=== PATIENT | female | born 1945 | race Caucasian/White ===

== ENCOUNTER 2019-07-21 19:07 | Inpatient (IN) | payer BC, MEDICARE ==
[~2019-07-21] VITALS: Ht 157.5 cm; Wt 94.0 kg
[2019-07-21] MEDS ORDERED: methylPREDNISolone INJ 125 MG/2 ML VIAL (J2930) IV ONE (19:15)
--- NOTE | 2019-07-21 19:56 | REP ---
Clinical: Cough and dyspnea. Comparison: none Findings: Examination is limited by portable technique, underpenetration, and poor inspiratory effort. Elevation to the right hemidiaphragm is appreciated along with right basilar acute versus chronic fibroatelectatic changes. No obvious effusion. No pneumothorax. Skeletal structures intact. Cardiomegaly and dual lead pacemaker. Impression: Chronic-appearing changes. Cannot exclude acute versus chronic right basilar changes. Electronically Signed by Hoang Reyes MD 07/21/2019 07:47 P
--- NOTE | 2019-07-21 20:26 | REPVR ---
PROCEDURE INFORMATION: Exam: CT Head Without Contrast Exam date and time: 07/21/2019 8:00 PM Age: 73 years old Clinical indication: Altered mental status/memory loss; Confusion or disorientation; Additional info: AMS TECHNIQUE: Imaging protocol: Computed tomography of the head without contrast. Radiation optimization: All CT scans at this facility use at least one of these dose optimization techniques: automated exposure control; mA and/or kV adjustment per patient size (includes targeted exams where dose is matched to clinical indication); or iterative reconstruction. COMPARISON: No relevant prior studies available. FINDINGS: Brain: Focus of macrocystic encephalomalacia in the right temporoparietal lobe consistent with a prior chronic infarct. There is parenchymal volume loss. White matter changes are demonstrated in the subcortical, centrum semiovale and periventricular white matter consistent with age related small vessel white matter angiopathic gliosis. Ventricles: The degree of ventricular dilatation is normal for age and/or degree of atrophy present. Bones/joints: Unremarkable. No acute fracture. Sinuses: Visualized sinuses are unremarkable. No fluid levels. Mastoid air cells: Visualized mastoid air cells are well aerated. Soft tissues: Unremarkable. IMPRESSION: 1. Focus of macrocystic encephalomalacia in the right temporoparietal lobe consistent with a prior chronic infarct. 2. There is parenchymal volume loss. White matter changes are demonstrated in the subcortical, centrum semiovale and periventricular white matter consistent with age related small vessel white matter angiopathic gliosis. 3. The degree of ventricular dilatation is normal for age and/or degree of atrophy present. Electronically signed by: Jason Armendariz On 07/21/2019 20:25:50 PM
[2019-07-21] MEDS ORDERED: ACETAMINOPHEN TAB 650MG DOSE (2X325MG) PO ONE (20:30)
[2019-07-21] MEDS ORDERED: ONDANSETRON 4MG/2ML VIAL (J2405) IV ONE (20:45)
[2019-07-21] MEDS ORDERED: NS 1,000 ML IV ONE (20:45)
[2019-07-21] MEDS ORDERED: NS 2,270 ML in IV 1 EA IV ONE (20:45)
[2019-07-21 20:51] LABS: BASO # 0.1 10^3/uL (0.0-0.2); BASO % 0.2 % (0.0-1.0); HEMATOCRIT 49.3 % (36.0-47.0); HEMOGLOBIN 15.2 g/dl (12.0-15.5); LYMPH # 0.5 10^3/uL (1.5-5.0); MEAN CORPUSCULAR HEMOGLOBIN 28.4 pg (27.0-33.0); MEAN CORPUSCULAR HGB CONC 30.8 g/dl (32.0-36.5); MEAN CORPUSCULAR VOLUME 92.1 fl (80.0-96.0); MONO # 1.5 10^3/uL (0.0-0.8); MONO % 6.1 % (0.0-5.0); NEUTROPHILS % 90.8 % (36.0-66.0); PLATELET COUNT, AUTOMATED 205 10^3/uL (150-450); RED BLOOD COUNT 5.35 10^6/uL (4.00-5.40); WHITE BLOOD COUNT 24.3 10^3/uL (4.0-10.0)
[2019-07-21] MEDS: HumaLOG INSULIN (NovoLOG) PER UNIT SC SCH (21:00)
[2019-07-21 21:17] LABS: CALCIUM LEVEL 9.5 MG/DL (8.8-10.2); CK-MB VALUE MASS 1.4 NG/ML (<3.6); CREATININE FOR GFR 1.29 MG/DL (0.55-1.30); GLOMERULAR FILTRATION RATE 43.2 (>39); MB/CK RELATIVE INDEX 1.43 (< OR =4); POTASSIUM SERUM 3.6 MEQ/L (3.5-5.1); TROPONIN I 0.11 NG/ML (< 0.10)
[2019-07-21] MEDS ORDERED: PIPERACILLIN/TAZOBACTAM SOD 3.375 GM in D5W MINI-BAG PLUS 50 ML IV ONE (21:30)
[2019-07-21] MEDS ORDERED: ISOVUE-370 76% 100ML VIAL (Q9967) As Ordered ONE (21:31)
[2019-07-21 21:35] LABS: OSMOLALITY SERUM 293 MOSM/KG (280-301)
[2019-07-21 21:40] LABS: ETHYL ALCOHOL (ETHANOL) < 0.003 % (0.000-0.010)
[2019-07-21] MEDS ORDERED: VITA500C24 PO (22:04)
[2019-07-21] MEDS ORDERED: CARD40TA PO (22:04)
[2019-07-21] MEDS ORDERED: VENTAER INH (22:04)
[2019-07-21] MEDS ORDERED: IPRA0.00 IN (22:04)
[2019-07-21] MEDS ORDERED: FERR1TAB8 PO (22:04)
[2019-07-21] MEDS ORDERED: MECL-86 PO (22:04)
[2019-07-21] MEDS ORDERED: POTA1TAB14 PO (22:04)
[2019-07-21] MEDS ORDERED: NITR4TASL SL (22:04)
[2019-07-21] MEDS ORDERED: SYNT175T2 PO (22:04)
[2019-07-21] MEDS ORDERED: TOUJ1.2I SC (22:04)
[2019-07-21] MEDS ORDERED: PANT-23 PO (22:04)
[2019-07-21] MEDS ORDERED: DOCU100C16 PO (22:04)
[2019-07-21] MEDS ORDERED: SYMB80INH INH (22:04)
[2019-07-21] MEDS ORDERED: CRES40TA PO (22:04)
[2019-07-21] MEDS ORDERED: ELIQ5TAB PO (22:04)
[2019-07-21] MEDS ORDERED: FURO40TA2 PO (22:04)
[2019-07-21] MEDS ORDERED: CLAR10CA3 PO (22:04)
[2019-07-21] MEDS ORDERED: METF500T13 PO (22:09)
--- NOTE | 2019-07-21 22:41 | REPVR ---
PROCEDURE INFORMATION: Exam: CT Angiography Chest With Contrast Exam date and time: 07/21/2019 10:15 PM Age: 73 years old Clinical indication: Fever and shortness of breath; Additional info: SOB, fever unknown source TECHNIQUE: Imaging protocol: Computed tomographic angiography of the chest with intravenous contrast. 3D rendering: MIP and/or 3D reconstructed images were created by the technologist. Radiation optimization: All CT scans at this facility use at least one of these dose optimization techniques: automated exposure control; mA and/or kV adjustment per patient size (includes targeted exams where dose is matched to clinical indication); or iterative reconstruction. Contrast material: ISOVUE 370; Contrast volume: 100 ml; Contrast route: IV; COMPARISON: CR PORTABLE CHEST X-RAY 07/21/2019 7:30 PM FINDINGS: Pulmonary arteries: There are no pulmonary emboli. Excessive artifact limits evaluation of the smaller distal pulmonary arteries. Aorta: The aorta demonstrates mild atherosclerotic calcification. There is no aortic dissection or aneurysm. Lungs: Bilateral ground-glass opacities may be secondary to atelectasis although multifocal pneumonitis can present in a similar fashion. 7.4 mm noncalcified nodule right lower lobe. Right middle and lower lobe infiltrates with air bronchograms may be atelectatic although infection to be excluded clinically. Pleural space: Unremarkable. No pneumothorax. No pleural effusion. Heart: There is mild atherosclerotic calcification of the coronary arteries. Diaphragm: Large eventration right hemidiaphragm. Lymph nodes: Unremarkable. No enlarged lymph nodes. Bones/joints: The spine demonstrates mild degenerative changes. Soft tissues: Unremarkable. Other findings: Suboptimal inspiratory effort. IMPRESSION: 1. Bilateral ground-glass opacities may be secondary to atelectasis although multifocal pneumonitis can present in a similar fashion. 2. 7.4 mm noncalcified nodule right lower lobe. For patients at low risk (minimal or absent history of smoking and of other known risk factors), recommend CT at 6-12 months, then consider CT at 18-24 months. For patients at high risk (history of smoking or of other known risk factors), recommend CT at 6-12 months, then CT at 18-24 months. (paul Fay al., Fleischner Society, 2017). 3. Right middle and lower lobe infiltrates with air bronchograms may be atelectatic although infection to be excluded clinically. 4. There is no aortic dissection or aneurysm. 5. There are no pulmonary emboli. Excessive artifact limits evaluation of the smaller distal pulmonary arteries. Electronically signed by: Jason Armendariz On 07/21/2019 22:40:43 PM
--- NOTE | 2019-07-21 22:45 | REPVR ---
PROCEDURE INFORMATION: Exam: CT Abdomen And Pelvis With Contrast Exam date and time: 07/21/2019 10:15 PM Age: 73 years old Clinical indication: Fever; Additional info: SOB, fever unknown source TECHNIQUE: Imaging protocol: Computed tomography of the abdomen and pelvis with intravenous contrast. Radiation optimization: All CT scans at this facility use at least one of these dose optimization techniques: automated exposure control; mA and/or kV adjustment per patient size (includes targeted exams where dose is matched to clinical indication); or iterative reconstruction. Contrast material: ISOVUE 370; Contrast volume: 100 ml; Contrast route: IV; COMPARISON: No relevant prior studies available. FINDINGS: Liver: Examination of the liver demonstrates a lobular surface contour, and enlargement of the left and caudate lobes, findings consistent with cirrhosis. There is a diffuse decrease in hepatic parenchymal density, consistent with fatty infiltration. Gallbladder and bile ducts: There has been a cholecystectomy. Pancreas: There is diffuse pancreatic atrophy. Spleen: There is moderate splenomegaly with a maximum span of 15.5 centimeters. No focal abnormalities demonstrated. 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 Kidneys and ureters: Normal. No hydronephrosis. Stomach and bowel: Mild diverticulosis is present in the distal colon. No diverticulitis. Appendix: No evidence of appendicitis. Intraperitoneal space: Unremarkable. No free air. No significant fluid collection. Vasculature: The aorta demonstrates mild atherosclerotic calcification. Lymph nodes: Unremarkable. No enlarged lymph nodes. Bladder: Payne catheter within a collapsed urinary bladder. Reproductive: There has been a hysterectomy. Bones/joints: [id number] central spinal stenosis L3-L4 and L4-L5. Soft tissues: Unremarkable. IMPRESSION: 1. Examination of the liver demonstrates a lobular surface contour, and enlargement of the left and caudate lobes, findings consistent with cirrhosis. 2. There is moderate splenomegaly with a maximum span of 15.5 centimeters. No focal abnormalities demonstrated. 3. There has been a cholecystectomy. 4. There is a diffuse decrease in hepatic parenchymal density, consistent with fatty infiltration. 5. 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 6. There is diffuse pancreatic atrophy. 7. Mild diverticulosis is present in the distal colon. No diverticulitis. 8. There has been a hysterectomy. Electronically signed by: Jason Armendariz On 07/21/2019 22:44:54 PM
[2019-07-21 22:49] LABS: AMPHETAMINES LEVEL URINE NEGATIVE (NEGATIVE); BARBITURATES URINE NEGATIVE (NEGATIVE); BENZODIAZEPINES URINE NEGATIVE (NEGATIVE); CANNABINOIDS URINE NEGATIVE (NEGATIVE); COCAINE METABOLITE URINE NEGATIVE (NEGATIVE); METHADONE URINE NEGATIVE (NEGATIVE); OPIATES URINE NEGATIVE (NEGATIVE); PHENCYCLIDINE URINE NEGATIVE (NEGATIVE)
[2019-07-22 00:19] LABS: INR 1.67; PROTHROMBIN TIME 19.5 SECONDS (11.8-14.0)
[2019-07-22 00:20] LABS: PARTIAL THROMBOPLASTIN TIME 34.3 SECONDS (25.0-38.4)
[2019-07-22] MEDS ORDERED: IPRATROPIUM 0.5MG/ALBUTEROL 2.5MG INH SOL UD 3ML (DUONEB)(J7620) As Ordered ONE (01:11)
[2019-07-22] MEDS ORDERED: MECLIZINE 25 MG TABLET PO PRN (01:45)
[2019-07-22] MEDS ORDERED: GLUCAGON FOR INJ 1 MG VIAL (J1610) SC PRN (01:45)
[2019-07-22] MEDS ORDERED: NITROGLYCERIN 0.4 MG SUBL TABLET SL PRN (01:45)
[2019-07-22] MEDS ORDERED: GLUCOSE 4 GM CHEW TABLET PO PRN (01:45)
[2019-07-22] MEDS ORDERED: DOCUSATE SODIUM 100 MG CAP PO PRN (01:45)
[2019-07-22] MEDS ORDERED: DEXTROSE 50% 50 ML SYRINGE IV PRN (01:45)
[2019-07-22] MEDS: IPRATROPIUM 0.5MG/ALBUTEROL 2.5MG INH SOL UD 3ML (DUONEB)(J7620) NEB SCH ×4 (02:00→19:59)
[2019-07-22 03:18] LABS: MB/CK RELATIVE INDEX 1.35 (< OR =4); TROPONIN I 0.17 NG/ML (< 0.10)
[2019-07-22 04:00] VITALS: BP 124/65
[2019-07-22] MEDS ORDERED: LevoFLOXacin IV 750 MG in IV 1 EA IV SCH (05:00)
--- NOTE | 2019-07-22 06:26 | HPEPDOC ---
[facility] Medical History & Physical Date of Admission Jul 22, 2019 Date of Service: Jul 22, 2019 Attending Physician: TIFFANIE GAONA MD History and Physical CHIEF COMPLAINT: Altered Mental Status/SOB/Chills HISTORY OF PRESENT ILLNESS: Patient is a 73 year old female who presented to the [facility] with altered mental status and shortness of breath. The patients daughter was present in during examination and helped provide history. The patients daughter stated that earlier in the day the patient had called her son and told him that she was feeling cold and shaky. The patients son went to the patients house and found that she appeared confused and was pacing around. The patient son then took the patient to the [facility] ER. At presentation to the ER the patient was found to be altered and confused. The patient received IV fluid boluses and IV antibiotics. She was found to have an elevated WBC and lactic acid and was febrile. She received a chest x-ray, CTA of the chest, CT of the abdomen and pelvis, and head CT all of which were negative for any acute process. At the time of examination the patient was less altered. According to the daughter the patient was acting much closer to her baseline. The patient stated that she understands that she was confused. Currently the patient states that she does have some shortness of breath. She states that she has chills and hot flashes. She denies any abdominal pain. Hospitalist service was consulted and the patient was admitted for further evaluation and management PAST MEDICAL HISTORY: 1. Congestive Heart failure 2. Diabetes Mellitus Type 2 3. COPD 4. Chronic L leg wound 5. History of stroke 6. Skin Cancer on Left pérez PAST SURGICAL HISTORY: 1. Hysterectomy 2. CAD with stent placement x3 3. Pacemaker placement 4. Cataract surgery SOCIAL HISTORY: Patient lives home alone. Her daughter and son sometimes stop by to assist her. She denies alcohol use. She denies IV or illict drug use. She is a former smoker and quit 6 years ago. She started smoking about a ppd at the age of 17. FAMILY HISTORY: Patients mom is alive at 94 with CHF. Her father past away and had "heart problems" ALLERGIES: Please see below. REVIEW OF SYSTEMS: CONSTITUTIONAL: Admits to chills. Denies unintentional weightloss. Denies night sweats HEENT: Denies dysphagia. Denies sore throat. Denies lymphadenopathy CARDIOVASCULAR: Denies chest pain, denies palpitations or feelings of the heart racing RESPIRATORY: Admits to shortness of breath. Denies cough or sputum production GASTROINTESTINAL: Denies abdominal pain. Denies nausea, vomiting, diarrhea or constipation/ GENITOURINARY: Denies dysuria. Denies increased frequency or urgency SKIN: Admits to chronic ulcer on her left pérez which has recently started to heal NEUROLOGICAL: Denies changes in speech or gait. Admits to confusion PSYCHIATRIC: Denies depression or anxiety ENDOCRINE: Denies heat intolerance or cold intolerance. HEMATOLOGIC/LYMPHATIC: Denies easy bruising or bleeding. Denies history of DVT or PE HOME MEDICATIONS: Please see below. PHYSICAL EXAMINATION: VITAL SIGNS: Temperature 102.7, pulse 129 , respiratory rate 28, blood pressure 133/59, pulse oximetry 94% on 15L Nonrebreather GENERAL APPEARANCE: Awake, alert, and oriented. Does not appear in acute distress. Lying comfortably in bed HEENT: Atrauamtic, normocephalic. Eyes are nonicteric. Trachea is midline. No palpable cervical, axillary, or supraclavicular lymphadenopathy CARDIOVASCULAR: Normal S1, S2. tachycardic rate with a regular rhythm. No clicks rubs or murmurs LUNGS: Diminished breath sounds throughout with bilateral crackles in the bases. Symmetric chest expansion. No wheezing. No rhonchi ABDOMEN: Soft, nondistended. Nontender. No rebound tenderness of guarding. Normoactive bowel sounds throughout EXTREMITIES: Trace edema. Full and equal pulses in bilateral lower extremities NEUROLOGICAL: No focal neurological deficits PSYCHIATRIC: Mood and affect appear appropriate LABORATORY DATA: See below. IMAGING: Clinical: Cough and dyspnea. Comparison: none Findings: Examination is limited by portable technique, underpenetration, and poor inspiratory effort. Elevation to the right hemidiaphragm is appreciated along with right basilar acute versus chronic fibroatelectatic changes. No obvious effusion. No pneumothorax. Skeletal structures intact. Cardiomegaly and dual lead pacemaker. Impression: Chronic-appearing changes. Cannot exclude acute versus chronic right basilar changes. Electronically Signed by Hoang Reyes MD 07/21/2019 07:47 P PROCEDURE INFORMATION: Exam: CT Head Without Contrast Exam date and time: 07/21/2019 8:00 PM Age: 73 years old Clinical indication: Altered mental status/memory loss; Confusion or disorientation; Additional info: AMS TECHNIQUE: Imaging protocol: Computed tomography of the head without contrast. Radiation optimization: All CT scans at this facility use at least one of these dose optimization techniques: automated exposure control; mA and/or kV adjustment per patient size (includes targeted exams where dose is matched to clinical indication); or iterative reconstruction. COMPARISON: No relevant prior studies available. FINDINGS: Brain: Focus of macrocystic encephalomalacia in the right temporoparietal lobe consistent with a prior chronic infarct. There is parenchymal volume loss. White matter changes are demonstrated in the subcortical, centrum semiovale and periventricular white matter consistent with age related small vessel white matter angiopathic gliosis. Ventricles: The degree of ventricular dilatation is normal for age and/or degree of atrophy present. Bones/joints: Unremarkable. No acute fracture. Sinuses: Visualized sinuses are unremarkable. No fluid levels. Mastoid air cells: Visualized mastoid air cells are well aerated. Soft tissues: Unremarkable. IMPRESSION: 1. Focus of macrocystic encephalomalacia in the right temporoparietal lobe consistent with a prior chronic infarct. 2. There is parenchymal volume loss. White matter changes are demonstrated in the subcortical, centrum semiovale and periventricular white matter consistent with age related small vessel white matter angiopathic gliosis. 3. The degree of ventricular dilatation is normal for age and/or degree of atrophy present. Electronically signed by: Jason Armendariz On 07/21/2019 20:25:50 PM PROCEDURE INFORMATION: Exam: CT Angiography Chest With Contrast Exam date and time: 07/21/2019 10:15 PM Age: 73 years old Clinical indication: Fever and shortness of breath; Additional info: SOB, fever unknown source TECHNIQUE: Imaging protocol: Computed tomographic angiography of the chest with intravenous contrast. 3D rendering: MIP and/or 3D reconstructed images were created by the technologist. Radiation optimization: All CT scans at this facility use at least one of these dose optimization techniques: automated exposure control; mA and/or kV adjustment per patient size (includes targeted exams where dose is matched to clinical indication); or iterative reconstruction. Contrast material: ISOVUE 370; Contrast volume: 100 ml; Contrast route: IV; COMPARISON: CR PORTABLE CHEST X-RAY 07/21/2019 7:30 PM FINDINGS: Pulmonary arteries: There are no pulmonary emboli. Excessive artifact limits evaluation of the smaller distal pulmonary arteries. Aorta: The aorta demonstrates mild atherosclerotic calcification. There is no aortic dissection or aneurysm. Lungs: Bilateral ground-glass opacities may be secondary to atelectasis although multifocal pneumonitis can present in a similar fashion. 7.4 mm noncalcified nodule right lower lobe. Right middle and lower lobe infiltrates with air bronchograms may be atelectatic although infection to be excluded clinically. Pleural space: Unremarkable. No pneumothorax. No pleural effusion. Heart: There is mild atherosclerotic calcification of the coronary arteries. Diaphragm: Large eventration right hemidiaphragm. Lymph nodes: Unremarkable. No enlarged lymph nodes. Bones/joints: The spine demonstrates mild degenerative changes. Soft tissues: Unremarkable. Other findings: Suboptimal inspiratory effort. IMPRESSION: 1. Bilateral ground-glass opacities may be secondary to atelectasis although multifocal pneumonitis can present in a similar fashion. 2. 7.4 mm noncalcified nodule right lower lobe. For patients at low risk (minimal or absent history of smoking and of other known risk factors), recommend CT at 6-12 months, then consider CT at 18-24 months. For patients at high risk (history of smoking or of other known risk factors), recommend CT at 6-12 months, then CT at 18-24 months. (Sumeet et al., Fleischner Society, 2017). 3. Right middle and lower lobe infiltrates with air bronchograms may be atelectatic although infection to be excluded clinically. 4. There is no aortic dissection or aneurysm. 5. There are no pulmonary emboli. Excessive artifact limits evaluation of the smaller distal pulmonary arteries. Electronically signed by: Jason Armendariz On 07/21/2019 22:40:43 PM MICROBIOLOGY: Please see below. PROCEDURE INFORMATION: Exam: CT Abdomen And Pelvis With Contrast Exam date and time: 07/21/2019 10:15 PM Age: 73 years old Clinical indication: Fever; Additional info: SOB, fever unknown source TECHNIQUE: Imaging protocol: Computed tomography of the abdomen and pelvis with intravenous contrast. Radiation optimization: All CT scans at this facility use at least one of these dose optimization techniques: automated exposure control; mA and/or kV adjustment per patient size (includes targeted exams where dose is matched to clinical indication); or iterative reconstruction. Contrast material: ISOVUE 370; Contrast volume: 100 ml; Contrast route: IV; COMPARISON: No relevant prior studies available. FINDINGS: Liver: Examination of the liver demonstrates a lobular surface contour, and enlargement of the left and caudate lobes, findings consistent with cirrhosis. There is a diffuse decrease in hepatic parenchymal density, consistent with fatty infiltration. Gallbladder and bile ducts: There has been a cholecystectomy. Pancreas: There is diffuse pancreatic atrophy. Spleen: There is moderate splenomegaly with a maximum span of 15.5 centimeters. No focal abnormalities demonstrated. 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 Kidneys and ureters: Normal. No hydronephrosis. Stomach and bowel: Mild diverticulosis is present in the distal colon. No diverticulitis. Appendix: No evidence of appendicitis. Intraperitoneal space: Unremarkable. No free air. No significant fluid collection. Vasculature: The aorta demonstrates mild atherosclerotic calcification. Lymph nodes: Unremarkable. No enlarged lymph nodes. Bladder: Payne catheter within a collapsed urinary bladder. Reproductive: There has been a hysterectomy. Bones/joints: Rmpv-no-bzzenttl central spinal stenosis L3-L4 and L4-L5. Soft tissues: Unremarkable. IMPRESSION: 1. Examination of the liver demonstrates a lobular surface contour, and enlargement of the left and caudate lobes, findings consistent with cirrhosis. 2. There is moderate splenomegaly with a maximum span of 15.5 centimeters. No focal abnormalities demonstrated. 3. There has been a cholecystectomy. 4. There is a diffuse decrease in hepatic parenchymal density, consistent with fatty infiltration. 5. 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 6. There is diffuse pancreatic atrophy. 7. Mild diverticulosis is present in the distal colon. No diverticulitis. 8. There has been a hysterectomy. Electronically signed by: Jason Armendariz On 07/21/2019 22:44:54 PM ASSESSMENT: Patient is a 73 year old female who presented to the [facility] ER for AMS and shortness of breath and found to meet sepsis criteria . PLAN: 1. Sepsis 2/2 pneumonia/respiratory infection -Patient meets criteria for sepsis. She is febrile, with an elevated WBC, tachycardic and has an elevated lactic acidosis. -Patient has received IV fluid boluses. Patient received Zosyn in the ED. -Will continue patient on Levaquin IV -Procalcitonin is pending -telemetry 2. Lactic Acidosis -Patient will be continued on IVF. Likely secondary to the patients respiratory status. However, will continue IVF and trend 3. Altered Mental Status -Possibly secondary to sepsis/infection. The patients daughter states that she appears to be at her baseline currently. Will continue to watch 3. Atrial fibrillation with sick sinus syndrome -Patient has a pace maker. She is currently tachycardic. This could be secondary to Atrial fibrillation vs sepsis. Continue her home medications -Continue Eliquis 4. COPD -Patient may have a COPD exacerbation -IV Levaquin -Dounebs 5. Diabetes Mellitus Type 2 -Levemir 60 units SC daily -Sliding scale coverage 6. GERD -Continue home Protonix 7. DVT prophylaxis -Chronically anticoagulated with eliquis Vital Signs Vital Signs Date Time Temp Pulse Resp B/P (MAP) Pulse Ox O2 Delivery O2 Flow Rate FiO2 07/22/19 03:33 98.9 105 91 07/22/19 03:31 19 Nasal Cannula 5.0 07/22/19 03:30 103/57 (72) Laboratory Data Labs 24H Laboratory Tests 2 07/21/19 19:31: POC pH (Misc Panel) 7.450, POC Base Excess (Misc Panel) 3.0, POC Saturated Percent O2 (Misc) 98, POC pO2 (Misc Panel) 106.0H, POC pCO2 (Misc Panel) 38.5, POC HCO3 (Misc Panel) 26.7H, POC Total CO2 (Misc Panel) 28.0H 07/21/19 20:09: Bedside Glucose (Misc Panel) 176H 07/21/19 20:26: Immature Granulocyte % (Auto) 0.9, Neutrophils (%) (Auto) 90.8H, Lymphocytes (%) (Auto) 2.0L, Monocytes (%) (Auto) 6.1H, Eosinophils (%) (Auto) 0.0, Basophils (% ) (Auto) 0.2, Neutrophils # (Auto) 22.0H, Lymphocytes # (Auto) 0.5L, Monocytes # (Auto) 1.5H, Eosinophils # (Auto) 0.0, Basophils # (Auto) 0.1, Nucleated Red Blood Cells % (auto) 0.0, Prothrombin Time 19.5H, Prothromb Time International Ratio 1.67, Activated Partial Thromboplast Time 34.3, Anion Gap 11, Glomerular Filtration Rate 43.2, Lactic Acid Level 4.0*H, Calcium Level 9.5, Total Creatine Kinase 98, Creatine Kinase MB 1.4, Creatine Kinase MB Relative Index 1.43, Troponin I 0.11H, BX-Qbm-N-Type Natriuretic Peptide 568H 07/21/19 21:05: Osmolality 293, Ammonia 26, Ethyl Alcohol Level < 0.003, B-Hydroxybutyrate 2.30 07/21/19 21:53: Urine Color YELLOW, Urine Appearance CLEAR, Urine pH 7.0, Urine Specific [place] 1.012, Urine Protein 2+H, Urine Glucose (UA) NEGATIVE, Urine Ketones NEGATIVE, Urine Blood NEGATIVE, Urine Nitrite NEGATIVE, Urine Bilirubin NEGATIVE, Urine Urobilinogen 0.2, Urine Leukocyte Esterase NEGATIVE, Urine WBC (Auto) 2, Urine RBC (Auto) 4H, Urine Hyaline Casts (Auto) 0, Urine Bacteria (Auto) NEGATIVE, Urine Squamous Epithelial Cells 0, Urine Sperm (Auto) , Urine Opiates Screen NEGATIVE, Urine Methadone Screen NEGATIVE, Urine Barbiturates Screen NEGATIVE, Urine Phencyclidine Screen NEGATIVE, Urine Amphetamines Screen NEGATIVE, Urine Benzodiazepines Screen NEGATIVE, Urine Cocaine Metabolite Screen NEGATIVE, Urine Cannabinoids Screen NEGATIVE 07/22/19 02:41: Total Creatine Kinase 148, Creatine Kinase MB 2.0, Creatine Kinase MB Relative Index 1.35, Troponin I 0.17#H 07/22/19 02:42: Lactic Acid Followup at 4 Hours 3.4*H CBC/BMP Laboratory Tests 07/21/19 20:26 Microbiology Microbiology 07/21/19 Blood Culture, Received Pending 07/21/19 Respiratory Virus Panel (PCR) ([facility]) - Final, Complete 07/21/19 Blood Culture, Received Pending Home Medications Scheduled Apixaban (Eliquis) 5 Mg Tablet, 5 MG PO BID Ascorbic Acid (Vitamin C) 500 Mg Capsule, 500 MG PO DAILY Budesonide/Formoterol (Symbicort 80-4.5 Mcg Inhaler) 6.9 Gm Hfa.aer.ad, 2 PUFF INH BID Diltiazem HCl (Cardizem) 30 Mg Tablet, 30 MG PO TID Ferrous Sulfate (Ferrous Sulfate) 325 Mg Tablet, 325 MG PO TID Furosemide (Furosemide) 40 Mg Tablet, 40 MG PO DAILY Insulin Glargine,Hum.rec.anlog (Yvonne Solosttom) 300 Unit/1 Ml Insuln.pen, 190 UNIT SC DAILY Ipratropium/Albuterol Sulfate (Iprat-Albut 0.5-3(2.5) mg/3 ml) 3 Ml Ampul.neb, 1 INHALATION IN TID Levothyroxine Sodium (Synthroid) 175 Mcg Tablet, 175 MCG PO DAILY Loratadine (Claritin) 10 Mg Capsule, 10 MG PO DAILY Metformin HCl (Metformin HCl) 500 Mg Tablet, 500 MG PO BID Nitroglycerin (Nitrostat) 0.4 Mg Tab.subl, 0.4 MG SL NITRO for chest pain 1st sign of attack; may repeat every 5 mins; if pain persists after 3 in 15 min, medical attention is recommended Pantoprazole Sodium (Pantoprazole Sodium) 40 Mg Tablet.dr, 40 MG PO DAILY Potassium Chloride (Potassium Chloride) 20 Meq Tablet.er, 20 MEQ PO BID Rosuvastatin Calcium (Crestor) 40 Mg Tablet, 40 MG PO DAILY Scheduled PRN Albuterol Sulfate (Ventolin Hfa) 18 Gm Hfa.aer.ad, 2 PUFF INH Q4-6H PRN for wheezing Docusate Sodium (Docusate Sodium) 100 Mg Capsule, 100 MG PO DAILY PRN for CONSTIPATION Meclizine HCl (Meclizine HCl) 25 Mg Tablet, 25 MG PO TID PRN for DIZZINESS Allergies Coded Allergies: Sulfa (Sulfonamide Antibiotics) (Verified Allergy, Unknown, ERIK, 07/21/19) acetaminophen (Verified Allergy, Unknown, nausea, 07/21/19) amiloride (Verified Allergy, Unknown, nausea, 07/21/19) amoxicillin (Verified Allergy, Unknown, reddened skin, 07/21/19) canagliflozin (Verified Allergy, Unknown, DKA, 07/21/19) cephalexin (Verified Allergy, Unknown, nausea, 07/21/19) clindamycin (Verified Allergy, Unknown, gi upset, 07/21/19) codeine (Verified Allergy, Unknown, n/v, 07/21/19) doxycycline (Verified Allergy, Unknown, n/v, 07/21/19) erythromycin base (Verified Allergy, Unknown, gi upset, 07/21/19) gemfibrozil (Verified Allergy, Unknown, rash, 07/21/19) hydrocodone (Verified Allergy, Unknown, nausea, 07/21/19) indapamide (Verified Allergy, Unknown, rash, 07/21/19) lorazepam (Verified Allergy, Unknown, hallucinations, 07/21/19) morphine (Verified Allergy, Unknown, n/v, 07/21/19) pioglitazone (Verified Allergy, Unknown, edema; wieght gain, 07/21/19) sitagliptin (Verified Allergy, Unknown, nausea, 07/21/19) tetracycline (Verified Allergy, Unknown, gi, 07/21/19) tiotropium (Verified Allergy, Unknown, rash, 07/21/19) A-FIB/CHADSVASC A-FIB History Current/History of A-Fib/PAF?: Yes Current PO Anticoag Therapy: Yes JENNIFER WORLEY DO Jul 22, 2019 06:26
[2019-07-22] MEDS: NS 1,000 ML IV SCH ×2 (06:51→13:21)
[2019-07-22] MEDS: SYMBICORT 80/4.5MCG INHALER 6GM INH SCH ×2 (07:32→19:59)
[2019-07-22 07:44] VITALS: BP 134/74
[2019-07-22] MEDS: HumaLOG INSULIN (NovoLOG) PER UNIT SC SCH ×4 (07:52→20:46)
[2019-07-22 07:54] LABS: HEMOGLOBIN 13.8 g/dl (12.0-15.5); MEAN CORPUSCULAR HEMOGLOBIN 29.3 pg (27.0-33.0); MEAN CORPUSCULAR HGB CONC 32.1 g/dl (32.0-36.5); MEAN CORPUSCULAR VOLUME 91.3 fl (80.0-96.0); PLATELET COUNT, AUTOMATED 163 10^3/uL (150-450); RED BLOOD COUNT 4.71 10^6/uL (4.00-5.40); WHITE BLOOD COUNT 24.9 10^3/uL (4.0-10.0)
[2019-07-22 08:16] LABS: CALCIUM LEVEL 8.5 MG/DL (8.8-10.2); CREATININE FOR GFR 1.37 MG/DL (0.55-1.30); GLOMERULAR FILTRATION RATE 40.3 (>39); POTASSIUM SERUM 3.9 MEQ/L (3.5-5.1)
[2019-07-22] MEDS ORDERED: FUROSEMIDE 40 MG TAB PO SCH (09:00)
[2019-07-22] MEDS: LEVEMIR (INSULIN DETEMIR) 1 UNITS/0.01ML SC SCH (09:41)
[2019-07-22] MEDS: PANTOPRAZOLE 40MG TAB (PROTONIX) PO SCH (09:42)
[2019-07-22] MEDS: FERROUS SULFATE 325MG TAB PO SCH ×3 (09:42→20:47)
[2019-07-22] MEDS: APIXABAN 5 MG TAB (ELIQUIS) PO SCH ×2 (09:42→20:48)
[2019-07-22] MEDS: ROSUVASTATIN 10 MG TAB (CRESTOR) PO SCH (09:42)
[2019-07-22] MEDS: ASCORBIC ACID 500 MG TAB PO SCH (09:42)
[2019-07-22] MEDS: LORATADINE 10 MG TAB PO SCH (09:42)
[2019-07-22 12:00] VITALS: BP 127/60
[2019-07-22] MEDS: PIPERACILLIN/TAZOBACTAM SOD 3.375 GM in D5W MINI-BAG PLUS 50 ML IV SCH ×2 (15:26→20:47)
[2019-07-22 16:00] VITALS: BP 132/61
[2019-07-22 20:00] VITALS: BP 147/73
[2019-07-23] VITALS (23 sets, daily range): BP systolic 132–160; BP diastolic 61–89; O2SAT 84–94
[2019-07-23] MEDS: IPRATROPIUM 0.5MG/ALBUTEROL 2.5MG INH SOL UD 3ML (DUONEB)(J7620) NEB SCH ×4 (00:01→20:00)
--- NOTE | 2019-07-23 01:11 | IPNPDOC ---
Subjective Date Seen The patient was seen on 07/22/19. Subjective Chief Complaint/HPI She reports that she is feeling much better, admits that she was confused yesterday but is A&O x3 now. Denies coughing. She desires to fill out paperwork for a MOLST form. Constitutional: Denies: Chills, Fever Pulmonary: Reports: Dyspnea; Denies: Cough Cardiovascular: Denies: Chest Pain Gastrointestinal: Denies: Nausea, Vomiting, Abdominal Pain, Diarrhea, Constipation Psych: Reports: Mood Normal, Anxiety Objective Physical Examination General Exam: Positive: Alert, Cooperative; Negative: Severe Distress Eye Exam: Negative: PERRLA Neck Exam: Negative: Supple Chest Exam: Positive: Clear to auscultation Heart Exam: Positive: Tachycardic Telemetry: Positive: No significant arrhythmia Abdomen Exam: Positive: Normal bowel sounds, Soft; Negative: Tenderness Skin Exam: Positive: Nl turgor and temperature Neuro Exam: Positive: Normal Tone, Sensation Intact Assessment /Plan Problems (1) COPD (chronic obstructive pulmonary disease) Problem Text: Nebs ordered. (2) Diabetes mellitus Problem Text: slidng scale insulin (3) Pneumonia Status: Acute Problem Text: Changed to Zosyn from Levaquin; she does not admit to cough, and I'm not certain that she has pneumonia. (4) HTN (hypertension) Status: Chronic (5) Sepsis Status: Acute Problem Text: Blood cultures temporarily positive for Gram positive cocci in chains. Plan/VTE VTE Prophylaxis Ordered?: Yes VS, I&O, 24H, Fishbone Vital Signs/I&O Vital Signs Date Time Temp Pulse Resp B/P (MAP) Pulse Ox O2 Delivery O2 Flow Rate FiO2 07/23/19 00:00 97.3 91 20 138/61 (86) 92 Nasal Cannula 3.0 I&O- Last 24 Hours up to 6 AM 07/23/19 05:59 Intake Total 1835 ml Output Total 750 ml Balance 1085 ml Laboratory Data 24H LABS Laboratory Tests 2 07/22/19 02:41: Total Creatine Kinase 148, Creatine Kinase MB 2.0, Creatine Kinase MB Relative Index 1.35, Troponin I 0.17#H 07/22/19 02:42: Lactic Acid Followup at 4 Hours 3.4*H 07/22/19 06:57: Bedside Glucose (Misc Panel) 223H 07/22/19 07:35: Nucleated Red Blood Cells % (auto) 0.0, Anion Gap 12, Glomerular Filtration Rate 40.3, Calcium Level 8.5L 07/22/19 11:45: Bedside Glucose (Misc Panel) 241H 07/22/19 16:32: Bedside Glucose (Misc Panel) 239H 07/22/19 20:13: Bedside Glucose (Misc Panel) 274H CBC/BMP Laboratory Tests 07/22/19 07:35 Microbiology Microbiology 07/21/19 Blood Culture - Preliminary, Resulted 07/21/19 Respiratory Virus Panel (PCR) ([facility]) - Final, Complete 07/21/19 Blood Culture - Preliminary, Resulted MICKEY HOUSE DO Jul 23, 2019 01:11
[2019-07-23] MEDS: IPRATROPIUM 0.5MG/ALBUTEROL 2.5MG INH SOL UD 3ML (DUONEB)(J7620) NEB PRN ×3 (02:07→23:51)
[2019-07-23] MEDS: PIPERACILLIN/TAZOBACTAM SOD 3.375 GM in D5W MINI-BAG PLUS 50 ML IV SCH ×4 (02:20→20:58)
[2019-07-23 04:20] LABS: APPEARANCE, URINE CLEAR (CLEAR); BACTERIA, URINE AUTO 2+ (NEGATIVE); BILIRUBIN, URINE AUTO NEGATIVE (NEGATIVE); BLOOD, URINE BLOOD 3+ (NEGATIVE); COLOR, URINE STRAW (YELLOW); GLUCOSE, URINE (UA) AUTO NEGATIVE (NEGATIVE); KETONE, URINE AUTO NEGATIVE (NEGATIVE); LEUKOCYTE ESTERASE, URINE AUTO NEGATIVE (NEGATIVE); NITRITE, URINE AUTO NEGATIVE (NEGATIVE); PROTEIN, URINE AUTO NEGATIVE (NEGATIVE); RBC, URINE AUTO 21 /HPF (0-3); SPECIFIC GRAVITY URINE AUTO 1.006 (1.002-1.035); SQUAMOUS EPITHELIAL CELL UR AU 0 /HPF (0-6); UROBILINOGEN, URINE AUTO 0.2 mg/dL (0.0-2.0); WBC, URINE AUTO 2 /HPF (0-3)
[2019-07-23 05:18] LABS: HEMATOCRIT 42.6 % (36.0-47.0); HEMOGLOBIN 12.9 g/dl (12.0-15.5); MEAN CORPUSCULAR HEMOGLOBIN 28.4 pg (27.0-33.0); MEAN CORPUSCULAR HGB CONC 30.3 g/dl (32.0-36.5); MEAN CORPUSCULAR VOLUME 93.8 fl (80.0-96.0); PLATELET COUNT, AUTOMATED 164 10^3/uL (150-450); RED BLOOD COUNT 4.54 10^6/uL (4.00-5.40); WHITE BLOOD COUNT 16.9 10^3/uL (4.0-10.0)
[2019-07-23 05:47] LABS: CALCIUM LEVEL 8.6 MG/DL (8.8-10.2); CREATININE FOR GFR 1.11 MG/DL (0.55-1.30); GLOMERULAR FILTRATION RATE 51.4 (>39); POTASSIUM SERUM 3.9 MEQ/L (3.5-5.1)
[2019-07-23] MEDS: SYMBICORT 80/4.5MCG INHALER 6GM INH SCH ×2 (07:21→21:41)
[2019-07-23] MEDS: HumaLOG INSULIN (NovoLOG) PER UNIT SC SCH ×4 (07:51→21:00)
--- NOTE | 2019-07-23 08:11 | REP ---
Clinical: Shortness of breath. Comparison: 07/21/2019. Findings: Stable cardiomegaly and elevation to the right hemidiaphragm again noted. Pulmonary vascular congestion and interstitial edema along with possible right pleural effusion cannot be excluded. No pneumothorax. Skeletal structures intact. Impression: 1. Cardiomegaly with pulmonary vascular congestion/interstitial edema suspected. Electronically Signed by Hoang Reyes MD 07/23/2019 08:02 A
[2019-07-23] MEDS: FERROUS SULFATE 325MG TAB PO SCH ×3 (08:36→20:58)
[2019-07-23] MEDS: ASCORBIC ACID 500 MG TAB PO SCH (08:36)
[2019-07-23] MEDS: LEVEMIR (INSULIN DETEMIR) 1 UNITS/0.01ML SC SCH (08:36)
[2019-07-23] MEDS: ROSUVASTATIN 10 MG TAB (CRESTOR) PO SCH (08:36)
[2019-07-23] MEDS: LORATADINE 10 MG TAB PO SCH (08:37)
[2019-07-23] MEDS: APIXABAN 5 MG TAB (ELIQUIS) PO SCH ×2 (08:37→20:57)
[2019-07-23] MEDS: PANTOPRAZOLE 40MG TAB (PROTONIX) PO SCH (08:37)
[2019-07-23] MEDS ORDERED: FUROSEMIDE 40 MG TAB PO ONE (09:00)
[2019-07-23] MEDS: LEVOTHYROXINE 25MCG TABLET (0.025MG) PO SCH (09:11)
[2019-07-23] MEDS: LEVOTHYROXINE 150MCG TABLET (0.15MG) PO SCH (09:12)
[2019-07-23] MEDS ORDERED: FUROSEMIDE 40 MG/4 ML VIAL (J1940) IV ONE (11:00)
--- NOTE | 2019-07-23 15:21 | ECGEPIP ---
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
--- NOTE | 2019-07-23 15:25 | ECGEPIP ---
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
[2019-07-23 17:53] LABS: CREATININE FOR GFR 1.22 MG/DL (0.55-1.30); GLOMERULAR FILTRATION RATE 46.1 (>39); POTASSIUM SERUM 3.4 MEQ/L (3.5-5.1)
[2019-07-23] MEDS: FUROSEMIDE 40 MG TAB PO SCH ×2 (18:07→20:58)
[2019-07-23] MEDS ORDERED: POTASSIUM CHLORIDE 10 MEQ SR TABLET PO ONE (19:00)
[2019-07-24] VITALS (24 sets, daily range): BP systolic 139–180; BP diastolic 72–92; O2SAT 88–95
--- NOTE | 2019-07-24 00:01 | IPNPDOC ---
Subjective Date Seen The patient was seen on 07/23/19. Subjective Chief Complaint/HPI In the early hours of the morning she developed increased oxygen demand and dyspnea; CXR demonstrated bilateral infiltrates. It turns out that her Lasix dose had recently been changed, and she had been taking #3 tabs of 40 mg Lasix daily. Patient was given IV Lasix and began diuresing. MOLST form had been discussed and filled out with patient yesterday, but patient waited to sign it until tomorrow afternoon, when a family member was able to bring her glasses and she could personally read the form. I signed the form this morning. She also has developed significant tender, erythematous skin along her RLE. Blood cultures are growing GBS. Constitutional: Denies: Chills, Fever Skin: Reports: Rash (erythema and calor RLE), Breakdown (LLE) Pulmonary: Reports: Dyspnea; Denies: Cough Cardiovascular: Denies: Chest Pain Gastrointestinal: Reports: Constipation; Denies: Nausea, Vomiting, Abdominal Pain, Diarrhea Psych: Reports: Mood Normal Objective Physical Examination General Exam: Positive: Alert, Cooperative; Negative: Severe Distress Eye Exam: Negative: PERRLA Neck Exam: Negative: Supple Chest Exam: Positive: Clear to auscultation Heart Exam: Positive: Tachycardic Telemetry: Positive: No significant arrhythmia Abdomen Exam: Positive: Normal bowel sounds, Soft; Negative: Tenderness Skin Exam: Positive: Nl turgor and temperature, Rash (erythematous area that is warm and tender to the touch along RLE) Neuro Exam: Positive: Normal Tone, Sensation Intact Psych Exam: Positive: Mental status NL Assessment /Plan Problems (1) COPD (chronic obstructive pulmonary disease) Problem Text: Nebs ordered. (2) Diabetes mellitus Problem Text: slidng scale insulin (3) Pneumonia Status: Acute Problem Text: 07/23 -- I think volume overload is a more likely explanation of her dyspnea. Changed to Zosyn from Levaquin; she does not admit to cough, and I'm not certain that she has pneumonia. (4) HTN (hypertension) Status: Chronic (5) Sepsis Status: Acute Problem Text: Blood cultures temporarily positive for Gram positive cocci in chains. (6) Volume overload Status: Acute Problem Text: 07/23 -- I think this is the source of her dyspnea, and it was worsened with the IV fluids that she was receiving. She is diuresing well. (7) Cellulitis Problem Text: Zosyn ordered. Likely cause of her GBS status. (8) Group B streptococcal infection Status: Acute Problem Text: I think this is secondary to her RLE cellulitis. Zosyn ordered, Plan/VTE VTE Prophylaxis Ordered?: Yes VS, I&O, 24H, Fishbone Vital Signs/I&O Vital Signs Date Time Temp Pulse Resp B/P (MAP) Pulse Ox O2 Delivery O2 Flow Rate FiO2 07/23/19 20:58 94 142/67 07/23/19 20:00 97.1 20 91 Venturi Mask 4.0 07/23/19 20:00 35 I&O- Last 24 Hours up to 6 AM 07/23/19 06:00 Intake Total 1835 ml Output Total 1195 ml Balance 640 ml Laboratory Data 24H LABS Laboratory Tests 2 07/23/19 04:01: Urine Color STRAW, Urine Appearance CLEAR, Urine pH 6.0, Urine Specific Dennard 1.006, Urine Protein NEGATIVE, Urine Glucose (Auto)(UA) NEGATIVE, Urine Ketones (Auto) NEGATIVE, Urine Blood 3+H, Urine Nitrite NEGATIVE, Urine Bilirubin NEGATIVE, Urine Urobilinogen 0.2, Urine Leukocyte Esterase (Auto) NEGATIVE, Urine WBC (Auto) 2, Urine RBC (Auto) 21H, Urine Hyaline Casts (Auto) 0, Urine Bacteria (Auto) 2+H, Urine Squamous Epithelial Cells 0, Urine Sperm (Auto) 07/23/19 04:56: Nucleated Red Blood Cells % (auto) 0.0, Anion Gap 8, Glomerular Filtration Rate 51.4, Calcium Level 8.6L 07/23/19 12:03: Bedside Glucose (Misc Panel) 169H 07/23/19 16:34: Bedside Glucose (Misc Panel) 127H 07/23/19 17:14: Anion Gap 8, Glomerular Filtration Rate 46.1, Calcium Level 9.0 07/23/19 21:02: Bedside Glucose (Misc Panel) 145H CBC/BMP Laboratory Tests 07/23/19 04:56 07/23/19 17:14 Microbiology Microbiology 07/21/19 Blood Culture - Preliminary, Resulted Strep Agalactiae Group B 07/21/19 Respiratory Virus Panel (PCR) ([facility]) - Final, Complete 07/21/19 Blood Culture - Preliminary, Resulted Strep Agalactiae Group B MICKEY HOUSE DO Jul 24, 2019 00:01
[2019-07-24] MEDS: IPRATROPIUM 0.5MG/ALBUTEROL 2.5MG INH SOL UD 3ML (DUONEB)(J7620) NEB SCH ×4 (02:31→22:03)
[2019-07-24] MEDS: PIPERACILLIN/TAZOBACTAM SOD 3.375 GM in D5W MINI-BAG PLUS 50 ML IV SCH ×4 (03:44→20:41)
[2019-07-24] MEDS: LEVOTHYROXINE 150MCG TABLET (0.15MG) PO SCH (05:30)
[2019-07-24] MEDS: LEVOTHYROXINE 25MCG TABLET (0.025MG) PO SCH (05:30)
[2019-07-24 06:00] LABS: HEMOGLOBIN 13.9 g/dl (12.0-15.5); MEAN CORPUSCULAR HGB CONC 31.6 g/dl (32.0-36.5); MEAN CORPUSCULAR VOLUME 91.7 fl (80.0-96.0); PLATELET COUNT, AUTOMATED 184 10^3/uL (150-450); WHITE BLOOD COUNT 11.3 10^3/uL (4.0-10.0)
[2019-07-24 06:20] LABS: CALCIUM LEVEL 9.2 MG/DL (8.8-10.2); CREATININE FOR GFR 1.17 MG/DL (0.55-1.30); GLOMERULAR FILTRATION RATE 48.4 (>39); POTASSIUM SERUM 4.2 MEQ/L (3.5-5.1)
[2019-07-24] MEDS: HumaLOG INSULIN (NovoLOG) PER UNIT SC SCH ×4 (07:30→20:44)
[2019-07-24] MEDS: SYMBICORT 80/4.5MCG INHALER 6GM INH SCH ×2 (08:17→22:03)
[2019-07-24] MEDS: HYDROCORTISONE 1% CREAM 30 GM TOP SCH ×2 (09:00→20:40)
--- NOTE | 2019-07-24 09:46 | IPNPDOC ---
Subjective Date Seen The patient was seen on 07/24/19. Subjective Chief Complaint/HPI Pt this morning states that she is feeling better. She states that her breathing is better and she is thirsty, she wants to know if she can have more to drink. General: Reports: Fatigue Constitutional: Denies: Chills, Fever Pulmonary: Denies: Dyspnea, Cough Cardiovascular: Denies: Chest Pain, Palpitations Gastrointestinal: Denies: Nausea, Vomiting, Diarrhea Neurological: Denies: Weakness, Numbness Psych: Reports: Mood Normal Objective Physical Examination General Exam: Positive: Alert, Cooperative; Negative: Severe Distress Eye Exam: Negative: PERRLA ENT Exam: Positive: Mucous membr. moist/pink Neck Exam: Negative: Supple Chest Exam: Positive: Rales (Bibasilar fine rales), Diminished Heart Exam: Positive: Tachycardic Telemetry: Positive: No significant arrhythmia Abdomen Exam: Positive: Normal bowel sounds, Soft; Negative: Tenderness Skin Exam: Positive: Nl turgor and temperature, Rash (erythematous area that is warm and tender to the touch along RLE) Neuro Exam: Positive: Normal Tone, Sensation Intact Psych Exam: Positive: Mental status NL Assessment /Plan Problems (1) Acute on chronic diastolic (congestive) heart failure Status: Acute Response to Treatment: Stable Discussed With: Patient Problem Specific Plan: Monitor Clinically, Repeat Labs Problem Text: 07/24 Lasix IV yesterday, now on Lasix 40 mg po TID, YONI diet, overnight put out 3.5 L, weight down 6 kg. Resp status improved with diuresis. (2) Sepsis Status: Acute Problem Text: BC+ GB Strep x 2, on Zosyn. Likely assoc with LE cellulitis. Afebrile, WBC cont to trend down. (3) Cellulitis Problem Text: Zosyn ordered. See above. (4) Pneumonia Status: Acute Problem Text: 07/24 On Zosyn D3 07/23 -- I think volume overload is a more likely explanation of her dyspnea. Changed to Zosyn from Levaquin; she does not admit to cough, and I'm not certain that she has pneumonia. (5) Diabetes mellitus Status: Chronic Response to Treatment: Stable Problem Text: slidng scale insulin (6) COPD (chronic obstructive pulmonary disease) Status: Chronic Response to Treatment: Stable Problem Text: Nebs ordered. (7) HTN (hypertension) Status: Chronic Problem Specific Plan: Monitor Clinically (8) Volume overload Status: Acute Problem Text: 07/23 -- I think this is the source of her dyspnea, and it was worsened with the IV fluids that she was receiving. She is diuresing well. (9) Group B streptococcal infection Status: Acute Problem Text: I think this is secondary to her RLE cellulitis. Zosyn ordered, Plan/VTE VTE Prophylaxis Ordered?: Yes VS, I&O, 24H, Fishbone Vital Signs/I&O Vital Signs Date Time Temp Pulse Resp B/P (MAP) Pulse Ox O2 Delivery O2 Flow Rate FiO2 07/24/19 08:00 97.7 80 18 151/72 (98) 93 Venturi Mask 4.0 07/24/19 07:47 35 I&O- Last 24 Hours up to 6 AM 07/24/19 06:00 Intake Total 720 ml Output Total 3650 ml Balance -2930 ml Laboratory Data 24H LABS Laboratory Tests 2 07/23/19 12:03: Bedside Glucose (Misc Panel) 169H 07/23/19 16:34: Bedside Glucose (Misc Panel) 127H 07/23/19 17:14: Anion Gap 8, Glomerular Filtration Rate 46.1, Calcium Level 9.0 07/23/19 21:02: Bedside Glucose (Misc Panel) 145H 07/24/19 05:27: Nucleated Red Blood Cells % (auto) 0.0, Anion Gap 7L, Glomerular Filtration Rate 48.4, Calcium Level 9.2 CBC/BMP Laboratory Tests 07/23/19 17:14 07/24/19 05:27 Microbiology Microbiology 07/21/19 Blood Culture - Final, Complete Strep Agalactiae Group B 07/21/19 Respiratory Virus Panel (PCR) ([facility]) - Final, Complete 07/21/19 Blood Culture - Final, Complete Strep Agalactiae Group B CINDY ELY PA-C Jul 24, 2019 09:46
[2019-07-24] MEDS: FUROSEMIDE 40 MG TAB PO SCH ×3 (10:43→20:40)
[2019-07-24] MEDS: FERROUS SULFATE 325MG TAB PO SCH ×3 (10:43→20:41)
[2019-07-24] MEDS: ASCORBIC ACID 500 MG TAB PO SCH (10:43)
[2019-07-24] MEDS: PANTOPRAZOLE 40MG TAB (PROTONIX) PO SCH (10:43)
[2019-07-24] MEDS: APIXABAN 5 MG TAB (ELIQUIS) PO SCH ×2 (10:44→20:40)
[2019-07-24] MEDS: ROSUVASTATIN 10 MG TAB (CRESTOR) PO SCH (10:44)
[2019-07-24] MEDS: LORATADINE 10 MG TAB PO SCH (10:44)
[2019-07-24] MEDS: LEVEMIR (INSULIN DETEMIR) 1 UNITS/0.01ML SC SCH (11:29)
[2019-07-24] MEDS: NITROGLYCERIN 2% OINT 1 GM *U/D* PKT TOP SCH (22:07)
[2019-07-25] VITALS (24 sets, daily range): BP systolic 130–168; BP diastolic 70–88; O2SAT 83–95
[2019-07-25] MEDS: IPRATROPIUM 0.5MG/ALBUTEROL 2.5MG INH SOL UD 3ML (DUONEB)(J7620) NEB SCH ×4 (02:13→20:00)
[2019-07-25] MEDS: PIPERACILLIN/TAZOBACTAM SOD 3.375 GM in D5W MINI-BAG PLUS 50 ML IV SCH ×2 (03:53→09:11)
[2019-07-25] MEDS: NITROGLYCERIN 2% OINT 1 GM *U/D* PKT TOP SCH (03:56)
[2019-07-25] MEDS: LEVOTHYROXINE 150MCG TABLET (0.15MG) PO SCH (05:43)
[2019-07-25] MEDS: LEVOTHYROXINE 25MCG TABLET (0.025MG) PO SCH (05:43)
[2019-07-25 06:10] LABS: HEMATOCRIT 46.4 % (36.0-47.0); HEMOGLOBIN 14.1 g/dl (12.0-15.5); MEAN CORPUSCULAR HGB CONC 30.4 g/dl (32.0-36.5); MEAN CORPUSCULAR VOLUME 92.2 fl (80.0-96.0); PLATELET COUNT, AUTOMATED 191 10^3/uL (150-450); RED BLOOD COUNT 5.03 10^6/uL (4.00-5.40)
[2019-07-25 06:40] LABS: CALCIUM LEVEL 8.8 MG/DL (8.8-10.2); CREATININE FOR GFR 1.14 MG/DL (0.55-1.30); GLOMERULAR FILTRATION RATE 49.9 (>39)
[2019-07-25] MEDS: HumaLOG INSULIN (NovoLOG) PER UNIT SC SCH ×4 (07:10→20:03)
[2019-07-25] MEDS: SYMBICORT 80/4.5MCG INHALER 6GM INH SCH ×2 (07:56→21:06)
[2019-07-25] MEDS: POTASSIUM CHLORIDE 10 MEQ SR TABLET PO SCH ×2 (09:09→12:34)
[2019-07-25] MEDS: PANTOPRAZOLE 40MG TAB (PROTONIX) PO SCH (09:10)
[2019-07-25] MEDS: ASCORBIC ACID 500 MG TAB PO SCH (09:10)
[2019-07-25] MEDS: LORATADINE 10 MG TAB PO SCH (09:10)
[2019-07-25] MEDS: FUROSEMIDE 40 MG TAB PO SCH ×3 (09:10→20:02)
[2019-07-25] MEDS: FERROUS SULFATE 325MG TAB PO SCH ×3 (09:10→20:02)
[2019-07-25] MEDS: APIXABAN 5 MG TAB (ELIQUIS) PO SCH ×2 (09:10→20:01)
[2019-07-25] MEDS: ROSUVASTATIN 10 MG TAB (CRESTOR) PO SCH (09:10)
[2019-07-25] MEDS: LEVEMIR (INSULIN DETEMIR) 1 UNITS/0.01ML SC SCH (09:11)
[2019-07-25] MEDS: HYDROCORTISONE 1% CREAM 30 GM TOP SCH ×2 (09:12→20:02)
--- NOTE | 2019-07-25 09:52 | IPNPDOC ---
Subjective Date Seen The patient was seen on 07/25/19. Subjective Chief Complaint/HPI No complaints Constitutional: Denies: Chills, Fever Pulmonary: Denies: Dyspnea, Cough Cardiovascular: Denies: Chest Pain Gastrointestinal: Denies: Nausea, Vomiting, Abdominal Pain, Diarrhea, Constipation Objective Physical Examination General Exam: Positive: Alert, Cooperative; Negative: Severe Distress Eye Exam: Negative: PERRLA ENT Exam: Positive: Mucous membr. moist/pink Neck Exam: Negative: Supple Chest Exam: Positive: Rales (Bibasilar fine rales), Diminished Heart Exam: Positive: Tachycardic Telemetry: Positive: No significant arrhythmia Abdomen Exam: Positive: Normal bowel sounds, Soft; Negative: Tenderness Skin Exam: Positive: Nl turgor and temperature, Rash (erythematous area that is warm and tender to the touch along RLE) Neuro Exam: Positive: Normal Tone, Sensation Intact Psych Exam: Positive: Mental status NL Assessment /Plan Problems (1) Sepsis Status: Acute Problem Text: 07/25 - BC+ GB Strep x 2, on Zosyn D4 Likely Etiology LE cellulitis, but leg does not really look better with abx suggesting possible other etiology - Get Echo Afebrile, WBC normalized (2) Acute on chronic diastolic (congestive) heart failure Status: Acute Response to Treatment: Stable Discussed With: Patient Problem Specific Plan: Monitor Clinically, Repeat Labs Problem Text: 07/25 - Continues to diurese on po Lasix 40 TID. Still requiring Venti mask - will try to wean D/C sandhu Encourage OOB replace K+ 07/24 Lasix IV yesterday, now on Lasix 40 mg po TID, YONI diet, overnight put out 3.5 L, weight down 6 kg. Resp status improved with diuresis. (3) Cirrhosis Status: Chronic Problem Text: Likely secondary to NAFLD - No ascites on CT: 1. Examination of the liver demonstrates a lobular surface contour, and enlargement of the left and caudate lobes, findings consistent with cirrhosis. 2. There is moderate splenomegaly with a maximum span of 15.5 centimeters. No focal abnormalities demonstrated. 3. There has been a cholecystectomy. 4. There is a diffuse decrease in hepatic parenchymal density, consistent with fatty infiltration. 5. 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 6. There is diffuse pancreatic atrophy. 7. Mild diverticulosis is present in the distal colon. No diverticulitis. 8. There has been a hysterectomy. Get Hepatitis panel etc and F/U as outpatient (4) Cellulitis Problem Text: Zosyn ordered. See above. (5) Pneumonia Status: Acute Problem Text: 07/25 On Zosyn D4 07/23 -- I think volume overload is a more likely explanation of her dyspnea. Changed to Zosyn from Levaquin; she does not admit to cough, and I'm not certain that she has pneumonia. (6) Diabetes mellitus Status: Chronic Response to Treatment: Stable Problem Text: slidng scale insulin and Levemir - AM blood sugars are low last 2 days - I will cut back on Levemir Slightly (7) COPD (chronic obstructive pulmonary disease) Status: Chronic Response to Treatment: Stable Problem Text: Nebs ordered. (8) HTN (hypertension) Status: Chronic Problem Specific Plan: Monitor Clinically Problem Text: BP stable - patient refused NTG paste - I will d/c this (9) Volume overload Status: Acute Problem Text: 07/23 -- I think this is the source of her dyspnea, and it was worsened with the IV fluids that she was receiving. She is diuresing well. (10) Group B streptococcal infection Status: Acute Problem Text: I think this is secondary to her RLE cellulitis. Zosyn ordered, (11) Atrial fibrillation Status: Chronic Problem Text: Rate controlled on Diltiazem Cont Eliquis (12) Lung nodule Onset Date: ~ 06/2019 Status: Chronic Problem Text: Will need outpatient f/u CT chest: 1. Bilateral ground-glass opacities may be secondary to atelectasis although multifocal pneumonitis can present in a similar fashion. 2. 7.4 mm noncalcified nodule right lower lobe. For patients at low risk (minimal or absent history of smoking and of other known risk factors), recommend CT at 6-12 months, then consider CT at 18-24 months. For patients at high risk (history of smoking or of other known risk factors), recommend CT at 6-12 months, then CT at 18-24 months. (Sumeet et al., Fleischner Society, 2017). 3. Right middle and lower lobe infiltrates with air bronchograms may be atelectatic although infection to be excluded clinically. 4. There is no aortic dissection or aneurysm. 5. There are no pulmonary emboli. Excessive artifact limits evaluation of the smaller distal pulmonary arteries. Plan/VTE VTE Prophylaxis Ordered?: Yes Disposition Get PT - move to floor VS, I&O, 24H, Fishbone Vital Signs/I&O Vital Signs Date Time Temp Pulse Resp B/P (MAP) Pulse Ox O2 Delivery O2 Flow Rate FiO2 07/25/19 09:10 101 144/70 07/25/19 08:00 98.4 18 95 Venturi Mask 4.0 07/25/19 06:00 35 I&O- Last 24 Hours up to 6 AM 07/25/19 06:00 Intake Total 920 ml Output Total 2550 ml Balance -1630 ml Laboratory Data 24H LABS Laboratory Tests 2 07/24/19 09:30: Bedside Glucose (Misc Panel) 143H 07/24/19 12:06: Bedside Glucose (Misc Panel) 238H 07/24/19 17:14: Bedside Glucose (Misc Panel) 183H 07/24/19 20:44: Bedside Glucose (Misc Panel) 137H 07/25/19 05:43: Nucleated Red Blood Cells % (auto) 0.0, Anion Gap 9, Glomerular Filtration Rate 49.9, Calcium Level 8.8, Magnesium Level 2.0 CBC/BMP Laboratory Tests 07/25/19 05:43 Microbiology Microbiology 07/21/19 Blood Culture - Final, Complete Strep Agalactiae Group B 07/21/19 Respiratory Virus Panel (PCR) ([facility]) - Final, Complete 07/21/19 Blood Culture - Final, Complete Strep Agalactiae Group B MELVIN DURHAM PA-C Jul 25, 2019 09:52 Anuj Prince MD Jul 25, 2019 11:07
[2019-07-25 10:53] LABS: FERRITIN 143 NG/ML (8-252); IRON (FE) 60 UG/DL (50-170); PERCENT SATURATION 21.7 % (13.2-45.0); TOTAL IRON BINDING CAPACITY 276 UG/DL (250-450)
[2019-07-25] MEDS: NYSTATIN 100,000 UNITS/GM TOPICAL PWD 15 GM TOP SCH ×2 (11:14→20:02)
[2019-07-25] MEDS ORDERED: MIRALAX *UNIT DOSE* 17GM PACKET PO PRN (11:15)
[2019-07-25] MEDS ORDERED: FLEET ENEMA PR PRN (11:15)
[2019-07-25] MEDS: cefTRIAXone SOD 1 GM in D5W MINI-BAG PLUS 50 ML IV SCH (15:30)
[2019-07-25] MEDS: DOCUSATE SODIUM 100 MG CAP PO SCH (20:01)
[2019-07-26] VITALS (23 sets, daily range): BP systolic 143–156; BP diastolic 70–97; O2SAT 85–95
[2019-07-26] MEDS: IPRATROPIUM 0.5MG/ALBUTEROL 2.5MG INH SOL UD 3ML (DUONEB)(J7620) NEB SCH ×4 (02:13→20:00)
[2019-07-26] MEDS: LEVOTHYROXINE 25MCG TABLET (0.025MG) PO SCH (05:32)
[2019-07-26] MEDS: LEVOTHYROXINE 150MCG TABLET (0.15MG) PO SCH (05:32)
[2019-07-26 06:29] LABS: HEMATOCRIT 46.2 % (36.0-47.0); HEMOGLOBIN 14.2 g/dl (12.0-15.5); MEAN CORPUSCULAR HGB CONC 30.7 g/dl (32.0-36.5); MEAN CORPUSCULAR VOLUME 90.9 fl (80.0-96.0); PLATELET COUNT, AUTOMATED 218 10^3/uL (150-450); RED BLOOD COUNT 5.08 10^6/uL (4.00-5.40); WHITE BLOOD COUNT 12.5 10^3/uL (4.0-10.0)
[2019-07-26 06:59] LABS: CALCIUM LEVEL 9.7 MG/DL (8.8-10.2); CREATININE FOR GFR 1.07 MG/DL (0.55-1.30); GLOMERULAR FILTRATION RATE 53.7 (>39); POTASSIUM SERUM 3.1 MEQ/L (3.5-5.1)
[2019-07-26] MEDS: SYMBICORT 80/4.5MCG INHALER 6GM INH SCH ×2 (07:55→20:13)
[2019-07-26] MEDS: ASCORBIC ACID 500 MG TAB PO SCH (08:40)
[2019-07-26] MEDS: FERROUS SULFATE 325MG TAB PO SCH ×3 (08:40→21:06)
[2019-07-26] MEDS: APIXABAN 5 MG TAB (ELIQUIS) PO SCH ×2 (08:40→21:06)
[2019-07-26] MEDS: ROSUVASTATIN 10 MG TAB (CRESTOR) PO SCH (08:41)
[2019-07-26] MEDS: LORATADINE 10 MG TAB PO SCH (08:41)
[2019-07-26] MEDS: FUROSEMIDE 40 MG TAB PO SCH ×3 (08:41→21:06)
[2019-07-26] MEDS: HumaLOG INSULIN (NovoLOG) PER UNIT SC SCH ×4 (08:42→20:59)
[2019-07-26] MEDS: HYDROCORTISONE 1% CREAM 30 GM TOP SCH ×2 (08:43→21:06)
[2019-07-26] MEDS: NYSTATIN 100,000 UNITS/GM TOPICAL PWD 15 GM TOP SCH ×2 (08:44→21:06)
[2019-07-26] MEDS: PANTOPRAZOLE 40MG TAB (PROTONIX) PO SCH (08:54)
[2019-07-26] MEDS ORDERED: POTASSIUM CHLORIDE 10 MEQ SR TABLET PO ONE (09:00)
[2019-07-26] MEDS ORDERED: LEVEMIR (INSULIN DETEMIR) 1 UNITS/0.01ML SC SCH (09:00)
--- NOTE | 2019-07-26 10:09 | IPNPDOC ---
Subjective Date Seen The patient was seen on 07/26/19. Subjective Chief Complaint/HPI Patient reports nausea since early this am. No vomiting. No abd pain. No significant BM in a few days. C/O Right thigh pain Constitutional: Denies: Chills, Fever Pulmonary: Denies: Dyspnea, Cough Cardiovascular: Denies: Chest Pain, Palpitations Gastrointestinal: Reports: Nausea, Constipation; Denies: Vomiting, Abdominal Pain, Diarrhea Objective Physical Examination General Exam: Positive: Alert, Cooperative, No Acute Distress Neck Exam: Negative: Supple Chest Exam: Positive: Rales (Bibasilar fine rales), Diminished Heart Exam: Positive: Tachycardic Telemetry: Positive: No significant arrhythmia, Tachycardia Abdomen Exam: Positive: Normal bowel sounds, Soft; Negative: Tenderness Extremity Exam: Positive: Edema Skin Exam: Positive: Rash (Venous stasis dermatitis on both shins with dry flaky skin and erythema with tenderness, but no ulceration) Psych Exam: Positive: Mental status NL Assessment /Plan Problems (1) Sepsis Status: Acute Problem Text: 07/26 - BC+ GB Strep x 2, s/p Zosyn x 5 days - Abx switched to Rocephin 07/25, however WBC has gone back up slightly today Etiology initially thought to be from Cellulitis, but no change in Right LE erythema or tenderness since starting abx depsite normalization of WBXC and becoming afebrile. - Rahs looks more like venous stassi dermatitis Echo done 07/25 - no report yet, but pe tech the Echo quality was poor - We will consult Dr. Rey to consider MALIA Get repeat BC and ESR/CRP (2) Acute on chronic diastolic (congestive) heart failure Status: Acute Response to Treatment: Stable Discussed With: Patient Problem Specific Plan: Monitor Clinically, Repeat Labs Problem Text: 07/25 - Continues to diurese on po Lasix 40 TID. I & O remain negative, but still clinically decompensated Venti-mask weaned to NC (3) Cirrhosis Status: Chronic Problem Text: Likely secondary to NAFLD - No ascites on CT: 1. Examination of the liver demonstrates a lobular surface contour, and enlargement of the left and caudate lobes, findings consistent with cirrhosis. 2. There is moderate splenomegaly with a maximum span of 15.5 centimeters. No focal abnormalities demonstrated. 3. There has been a cholecystectomy. 4. There is a diffuse decrease in hepatic parenchymal density, consistent with fatty infiltration. 5. 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 6. There is diffuse pancreatic atrophy. 7. Mild diverticulosis is present in the distal colon. No diverticulitis. 8. There has been a hysterectomy. Hepatitis panel etc pending and F/U as outpatient (4) Cellulitis Problem Text: Zosyn ordered. See above. (5) Pneumonia Status: Acute Problem Text: 07/25 On Zosyn D4 07/23 -- I think volume overload is a more likely explanation of her dyspnea. Changed to Zosyn from Levaquin; she does not admit to cough, and I'm not certain that she has pneumonia. (6) Diabetes mellitus Status: Chronic Response to Treatment: Stable Problem Text: slidng scale insulin and Levemir - (7) COPD (chronic obstructive pulmonary disease) Status: Chronic Response to Treatment: Stable Problem Text: Nebs ordered. (8) HTN (hypertension) Status: Chronic Problem Specific Plan: Monitor Clinically Problem Text: BP stable with NTG paste D/C'd yesterday (9) Group B streptococcal infection Status: Acute Problem Text: see above (10) Atrial fibrillation Status: Chronic Problem Text: Rate slightly rapid last 24 hours running 110- 120 on Diltiazem 30 TID. I will increase dose Cont Eliquis (11) Lung nodule Onset Date: ~ 06/2019 Status: Chronic Problem Text: Will need outpatient f/u CT chest: 1. Bilateral ground-glass opacities may be secondary to atelectasis although multifocal pneumonitis can present in a similar fashion. 2. 7.4 mm noncalcified nodule right lower lobe. For patients at low risk (minimal or absent history of smoking and of other known risk factors), recommend CT at 6-12 months, then consider CT at 18-24 months. For patients at high risk (history of smoking or of other known risk factors), recommend CT at 6-12 months, then CT at 18-24 months. (Sumeet et al., Fleischner Society, 2017). 3. Right middle and lower lobe infiltrates with air bronchograms may be atelectatic although infection to be excluded clinically. 4. There is no aortic dissection or aneurysm. 5. There are no pulmonary emboli. Excessive artifact limits evaluation of the smaller distal pulmonary arteries. (12) Nausea Status: Acute Problem Text: Patient requesting Mylanta Also give Zofran prn Increase bowel care Plan/VTE VTE Prophylaxis Ordered?: Yes (Eliquis) Plan Therapy: PT Disposition Cont. PT. VS, I&O, 24H, Fishbone Vital Signs/I&O Vital Signs Date Time Temp Pulse Resp B/P (MAP) Pulse Ox O2 Delivery O2 Flow Rate FiO2 07/26/19 08:40 118 147/97 07/26/19 08:02 4.0 07/26/19 08:00 98.4 18 91 Nasal Cannula 07/25/19 12:00 35 I&O- Last 24 Hours up to 6 AM 07/26/19 06:00 Intake Total 910 ml Output Total 2425 ml Balance -1515 ml Laboratory Data 24H LABS Laboratory Tests 2 07/25/19 10:06: Iron Level 60, Total Iron Binding Capacity 276, Transferrin % Saturation 21.7, Ferritin 143, Tumor Marker Alpha Fetoprotein 2.9 07/25/19 11:58: Bedside Glucose (Misc Panel) 155H 07/25/19 17:35: Bedside Glucose (Misc Panel) 141H 07/25/19 19:51: Bedside Glucose (Misc Panel) 199H 07/26/19 06:05: Nucleated Red Blood Cells % (auto) 0.0, Anion Gap 6L, Glomerular Filtration Rate 53.7, Calcium Level 9.7 CBC/BMP Laboratory Tests 07/26/19 06:05 Microbiology Microbiology 07/21/19 Blood Culture - Final, Complete Strep Agalactiae Group B 07/21/19 Respiratory Virus Panel (PCR) ([facility]) - Final, Complete 07/21/19 Blood Culture - Final, Complete Strep Agalactiae Group B MELVIN UDRHAM PA-C Jul 26, 2019 10:09
[2019-07-26] MEDS ORDERED: DOCUSATE SODIUM 100 MG CAP PO PRN (10:45)
[2019-07-26] MEDS ORDERED: MOM 30ML SUSPENSION UDC PO PRN (10:45)
[2019-07-26] MEDS: MAALOX 30 ML SUSP *UDC PO PRN ×2 (10:48→16:52)
[2019-07-26] MEDS: MIRALAX *UNIT DOSE* 17GM PACKET PO SCH (12:10)
--- NOTE | 2019-07-26 14:08 | ECHO ---
DATE OF STUDY: 07/25/2019 REFERRING PHYSICIAN: Dr. Marc Melo INDICATION: Sepsis, shortness of breath. HEIGHT: 62 inches. WEIGHT: 212 pounds. 2D MEASUREMENTS: Aortic root: 3.1 cm Proximal ascending aorta: 2.8 cm Left atrium: 4.1 cm Left ventricle diastole: 4.3 cm Ventricular septum: 1.29 cm Posterior wall: 1.33 cm Inferior vena cava: 2.1 cm (more than 50% respiratory variation). DOPPLER MEASUREMENTS: Aortic valve velocity: 132 cm/s LVOT velocity: 160 cm/s LVOT VTI: 20.7 cm No aortic regurgitation. Very mild regurgitation. Mitral E velocity: 101 cm/s Mitral A velocity: 118 cm/s Very mild tricuspid regurgitation. Estimated right ventricle systolic pressure: 34-39 mmHg assuming a right atrial pressure of 5-10 mmHg Pulmonary artery systolic pressure: 40 mmHg MITRAL ANNULAR TISSUE DOPPLER: E prime septal: 4.3 cm/s E prime lateral: 6.5 cm/s DESCRIPTION: Rhythm was AV sequential paced. This was a moderately technically difficult echocardiogram. No pericardial effusion. CONCLUSIONS: 1. No vegetations identified on any of the cardiac valves or on the visualized portion of the pacemaker leads. 2. Mild concentric left ventricle hypertrophy with paradoxical septal motion with normal wall motion and wall thickening elsewhere. Mild reduction of left ventricle (LV) systolic functioning. Left ventricular ejection fraction (LVEF) 50% by visual estimate. Grade 1 LV diastolic dysfunction. 3. Mild aortic valve sclerosis of a three-cusp aortic valve. No aortic stenosis or regurgitation. 4. Mild mitral annular calcification. Very mild mitral regurgitation. 5. Mild left atrial dilatation. 6. Suggestive of very mild elevation of pulmonary systolic pressure and estimated right ventricle systolic pressure. 7. Presence of endocardial right atrial and right ventricle pacemaker leads. [facility]
[2019-07-26] MEDS: cefTRIAXone SOD 1 GM in D5W MINI-BAG PLUS 50 ML IV SCH (15:35)
[2019-07-26] MEDS: ACETAMINOPHEN TAB 650MG DOSE (2X325MG) PO PRN (18:35)
[2019-07-26] MEDS ORDERED: CEPACOL LOZENGE PO PRN (20:00)
[2019-07-26] MEDS: DOCUSATE SODIUM 100 MG CAP PO SCH (21:05)
[2019-07-27] VITALS (20 sets, daily range): BP systolic 130–142; BP diastolic 72–76; O2SAT 89–96
[2019-07-27] MEDS: ACETAMINOPHEN TAB 650MG DOSE (2X325MG) PO PRN ×2 (00:09→21:00)
[2019-07-27] MEDS: IPRATROPIUM 0.5MG/ALBUTEROL 2.5MG INH SOL UD 3ML (DUONEB)(J7620) NEB SCH ×4 (02:00→20:00)
[2019-07-27] MEDS: LEVOTHYROXINE 150MCG TABLET (0.15MG) PO SCH (06:05)
[2019-07-27] MEDS: LEVOTHYROXINE 25MCG TABLET (0.025MG) PO SCH (06:05)
[2019-07-27 06:17] LABS: HEMOGLOBIN 14.5 g/dl (12.0-15.5); MEAN CORPUSCULAR HEMOGLOBIN 28.3 pg (27.0-33.0); MEAN CORPUSCULAR HGB CONC 30.9 g/dl (32.0-36.5); MEAN CORPUSCULAR VOLUME 91.6 fl (80.0-96.0); PLATELET COUNT, AUTOMATED 221 10^3/uL (150-450); RED BLOOD COUNT 5.13 10^6/uL (4.00-5.40); WHITE BLOOD COUNT 13.4 10^3/uL (4.0-10.0)
[2019-07-27 06:49] LABS: CREATININE FOR GFR 1.13 MG/DL (0.55-1.30); GLOMERULAR FILTRATION RATE 50.4 (>39)
[2019-07-27] MEDS: SYMBICORT 80/4.5MCG INHALER 6GM INH SCH ×2 (07:15→20:48)
[2019-07-27] MEDS: HumaLOG INSULIN (NovoLOG) PER UNIT SC SCH ×4 (07:30→20:17)
[2019-07-27] MEDS: MIRALAX *UNIT DOSE* 17GM PACKET PO SCH (09:00)
[2019-07-27] MEDS: FERROUS SULFATE 325MG TAB PO SCH ×3 (09:48→20:54)
[2019-07-27] MEDS: APIXABAN 5 MG TAB (ELIQUIS) PO SCH ×2 (09:48→20:54)
[2019-07-27] MEDS: ROSUVASTATIN 10 MG TAB (CRESTOR) PO SCH (09:48)
[2019-07-27] MEDS: LORATADINE 10 MG TAB PO SCH (09:49)
[2019-07-27] MEDS: FUROSEMIDE 40 MG TAB PO SCH (09:49)
[2019-07-27] MEDS: ASCORBIC ACID 500 MG TAB PO SCH (09:49)
[2019-07-27] MEDS: PANTOPRAZOLE 40MG TAB (PROTONIX) PO SCH (09:49)
[2019-07-27] MEDS: NYSTATIN 100,000 UNITS/GM TOPICAL PWD 15 GM TOP SCH ×2 (09:58→20:54)
[2019-07-27] MEDS: HYDROCORTISONE 1% CREAM 30 GM TOP SCH ×2 (09:58→20:54)
--- NOTE | 2019-07-27 10:34 | IPNPDOC ---
Subjective Date Seen The patient was seen on 07/27/19. Subjective Chief Complaint/HPI Denies SOB. No new issues. Constitutional: Denies: Chills, Fever Pulmonary: Denies: Dyspnea Cardiovascular: Denies: Chest Pain, Palpitations Gastrointestinal: Denies: Nausea, Vomiting, Abdominal Pain, Diarrhea, Constipation Objective Physical Examination General Exam: Positive: Alert, Cooperative, No Acute Distress Neck Exam: Negative: Supple Chest Exam: Positive: Rales (Bibasilar fine rales), Diminished Heart Exam: Positive: Tachycardic Telemetry: Positive: No significant arrhythmia, Tachycardia Abdomen Exam: Positive: Normal bowel sounds, Soft; Negative: Tenderness Extremity Exam: Negative: Edema Skin Exam: Positive: Rash (Venous stasis dermatitis on both shins with dry flaky skin and erythema with tenderness - improving. No ulceration) Psych Exam: Positive: Mental status NL Assessment /Plan Problems (1) Sepsis Status: Acute Problem Text: 07/27 - B/C x 2 grew GB strep - Inititally treated with Zosyn x 5 days. Now on Reocephin. Etiology uncertain - possible from cellulits although leg rash looks more like chronic venous dermatitis. WBC up slightly with change in abx. F/U BC x 2 pending. ESR only = 16, CRP = 4.6 MALIA scheduled today at 1:301/1 - BC+ GB Strep x 2, s/p Zosyn x 5 days - Abx switched to Rocephin 07/25, however WBC has gone back up slightly today (2) Acute on chronic diastolic (congestive) heart failure Status: Acute Response to Treatment: Stable Discussed With: Patient Problem Specific Plan: Monitor Clinically, Repeat Labs Problem Text: 07/27 - Clincally improving with Lasix 40 po TID. Remains on 4L NC however 07/25 - Continues to diurese on po Lasix 40 TID. I & O remain negative, but still clinically decompensated Venti-mask weaned to NC (3) Cirrhosis Status: Chronic Problem Text: Likely secondary to NAFLD - No ascites on CT: 1. Examination of the liver demonstrates a lobular surface contour, and enlargement of the left and caudate lobes, findings consistent with cirrhosis. 2. There is moderate splenomegaly with a maximum span of 15.5 centimeters. No focal abnormalities demonstrated. 3. There has been a cholecystectomy. 4. There is a diffuse decrease in hepatic parenchymal density, consistent with fatty infiltration. 5. 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 6. There is diffuse pancreatic atrophy. 7. Mild diverticulosis is present in the distal colon. No diverticulitis. 8. There has been a hysterectomy. Hepatitis panel etc pending and F/U as outpatient (4) Cellulitis Problem Text: See above. (5) Pneumonia Status: Acute Problem Text: 1/2 - as above - doubt pneumonia - more likley CHF pattern on CXR 07/25 On Zosyn D4 07/23 -- I think volume overload is a more likely explanation of her dyspnea. Changed to Zosyn from Levaquin; she does not admit to cough, and I'm not certain that she has pneumonia. (6) Diabetes mellitus Status: Chronic Response to Treatment: Stable Problem Text: slidng scale insulin and Levemir - (7) COPD (chronic obstructive pulmonary disease) Status: Chronic Response to Treatment: Stable Problem Text: Cont Symbicort & Nebs ordered. (8) HTN (hypertension) Status: Chronic Problem Specific Plan: Monitor Clinically Problem Text: BP stable with NTG paste D/C'd yesterday (9) Group B streptococcal infection Status: Acute Problem Text: see above (10) Atrial fibrillation Status: Chronic Problem Text: 1/2 - Diltiazem dose increased 1/2 - monitor trend COnt Eliquis (11) Lung nodule Onset Date: ~ 06/2019 Status: Chronic Problem Text: Will need outpatient f/u CT chest: 1. Bilateral ground-glass opacities may be secondary to atelectasis although multifocal pneumonitis can present in a similar fashion. 2. 7.4 mm noncalcified nodule right lower lobe. For patients at low risk (minimal or absent history of smoking and of other known risk factors), recommend CT at 6-12 months, then consider CT at 18-24 months. For patients at high risk (history of smoking or of other known risk factors), recommend CT at 6-12 months, then CT at 18-24 months. (Sumeet et al., Fleischner Society, 2017). 3. Right middle and lower lobe infiltrates with air bronchograms may be atelectatic although infection to be excluded clinically. 4. There is no aortic dissection or aneurysm. 5. There are no pulmonary emboli. Excessive artifact limits evaluation of the smaller distal pulmonary arteries. (12) Nausea Status: Resolved Problem Text: Patient requesting Mylanta Also give Zofran prn Increase bowel care Plan/VTE VTE Prophylaxis Ordered?: Yes (Nayla) Plan Therapy: PT Family Medicine Attending Note: I saw and examined Ms. Deal, discussed with NURYS Crowder. Agree with her note as documented. I spoke to Dr. Rey after her MALIA. He reports no evidence of vegetation. The patient's primary complaints to me this afternoon were musculoskeletal (left shoulder, right hip). She is also unhappy that were giving her diuretic in the evening as she urinates throughout the night; she does not like her fluid restriction. Nursing reports that she has family bringing fluids in for her so they don't think she is really restricted to 1500 mL daily anyway. I will trend her CRP as well as her white count. This will help determine whether we need to change of antibiotic back to Zosyn because of worsening infection not responsive to Rocephin even though the group B strep clearly should be treated with Rocephin. Additionally I will switch her diuretic regimen to 40 mg of Lasix in the morning and 100 mg of spironolactone in the evening. This should help with her cirrhosis as well as edema from heart failure. If this is not enough we can consider increasing the diuretics in the same ratio. 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 - plan for d/c home once stable VS, I&O, 24H, Fishbone Vital Signs/I&O Vital Signs Date Time Temp Pulse Resp B/P (MAP) Pulse Ox O2 Delivery O2 Flow Rate FiO2 07/27/19 09:49 112 130/72 07/27/19 08:00 97.7 20 92 Nasal Cannula 4.0 07/25/19 12:00 35 I&O- Last 24 Hours up to 6 AM 07/27/19 06:00 Intake Total 720 ml Output Total 1250 ml Balance -530 ml Laboratory Data 24H LABS Laboratory Tests 2 07/26/19 10:40: Erythrocyte Sedimentation Rate 16, C-Reactive Protein, Quantitative 4.79H 07/26/19 11:51: Bedside Glucose (Misc Panel) 206H 07/26/19 16:54: Bedside Glucose (Misc Panel) 123H 07/26/19 20:56: Bedside Glucose (Misc Panel) 125H 07/27/19 06:04: Nucleated Red Blood Cells % (auto) 0.0, Anion Gap 9, Glomerular Filtration Rate 50.4, Calcium Level 9.0 CBC/BMP Laboratory Tests 07/27/19 06:04 Microbiology Microbiology 07/26/19 Blood Culture, Received Pending 07/26/19 Blood Culture, Received Pending 07/21/19 Blood Culture - Final, Complete Strep Agalactiae Group B 07/21/19 Respiratory Virus Panel (PCR) ([facility]) - Final, Complete 07/21/19 Blood Culture - Final, Complete Strep Agalactiae Group B MELVIN DURHAM PA-C Jul 27, 2019 10:34 Alexsander De La Torre MD Jul 27, 2019 15:04
[2019-07-27] MEDS ORDERED: PROPOFOL 500 MG/50 ML VIAL As Ordered ONE (13:00)
[2019-07-27] MEDS ORDERED: LIDOCAINE VISCOUS 2% SOLN 15ML UDC As Ordered ONE (13:44)
[2019-07-27] MEDS ORDERED: CETACAINE SPRAY 5GM As Ordered ONE (13:48)
--- NOTE | 2019-07-27 14:34 | T-ECHO ---
DATE OF PROCEDURE: 07/27/2019 REFERRING PHYSICIAN: Dr. Marc Melo PREPROCEDURE DIAGNOSIS: Streptococcus agalactiae Group B bacteremia. POSTPROCEDURE DIAGNOSIS: Streptococcus agalactiae Group B bacteremia, no vegetations. PROCEDURE PERFORMED: Transesophageal echocardiogram. PRINCIPAL FINDINGS: No vegetations. PROCEDURE PERFORMED BY: Dilshad Rey MD AUTOMOBILE DETAILER: None. IV SEDATION: IV Propofol per THRILL PERFORMER. COMPLICATIONS: None. PROCEDURE DESCRIPTION: Rhythm appeared to be AV sequentially paced rhythm. The left ventricle appeared to be normal in size. Paradoxical septal wall motion was present. Mild reduction in overall LV systolic function. Left ventricular ejection fraction of 50 to 55% by visual estimate with normal wall motion of the LV three cochran elsewhere. Right ventricle appeared normal in size and systolic function. Atrial septum was intact anatomically and by color flow Doppler. Pulmonary vein flow in the left upper pulmonary vein was normal by pulse wave Doppler. Presence of right atrial and right ventricle pacemaker leads. Visualized portions of the cardiac pacemaker leads did not have any vegetations attached. Aortic valve was 3-cusped with mild focal thickening and focal calcific deposits. Trace aortic regurgitation. Mitral leaflets appeared structurally functional. Trace mitral regurgitation was present. Pulmonic valve and tricuspid valve were only moderately visualized but were without apparent regurgitation and without any obvious vegetations. No pericardial effusion. Descending thoracic aorta and distal aortic arch showed mild atheroma. CONCLUSIONS: 1. No vegetations seen on any of the cardiac valves or on the visualized portions of the pacemaker leads within the hear. 2. Paradoxical septal motion with normal wall motion and wall thickening of the remaining LV three cochran. Resultant mild reduction in overall LV systolic function. Left ventricular ejection fraction 50 to 55% by visual estimate. 3. Mild aortic valve sclerosis of a 3-cusp aortic valve. Trace aortic regurgitation. 4. Mild atheroma in the distal aortic arch and descending thoracic aorta.
[2019-07-27] MEDS ORDERED: LR 1,000 ML IV SCH (15:00)
[2019-07-27] MEDS ORDERED: ONDANSETRON 4MG/2ML VIAL (J2405) IV PRN (15:00)
[2019-07-27] MEDS: cefTRIAXone SOD 1 GM in D5W MINI-BAG PLUS 50 ML IV SCH (15:00)
[2019-07-27] MEDS: MAALOX 30 ML SUSP *UDC PO PRN (18:40)
[2019-07-27] MEDS: SPIRONOLACTONE 50 MG TAB PO SCH (20:53)
[2019-07-27] MEDS: DOCUSATE SODIUM 100 MG CAP PO SCH (20:54)
[2019-07-27] MEDS ORDERED: LEVEMIR (INSULIN DETEMIR) 1 UNITS/0.01ML SC SCH (21:00)
[2019-07-28] VITALS (10 sets, daily range): BP systolic 133–164; BP diastolic 72–76; O2SAT 90–97
[2019-07-28] MEDS: MAALOX 30 ML SUSP *UDC PO PRN ×2 (00:14→12:55)
[2019-07-28] MEDS: IPRATROPIUM 0.5MG/ALBUTEROL 2.5MG INH SOL UD 3ML (DUONEB)(J7620) NEB SCH ×4 (01:08→19:37)
[2019-07-28] MEDS: ACETAMINOPHEN TAB 650MG DOSE (2X325MG) PO PRN ×2 (03:21→18:38)
[2019-07-28] MEDS: LEVOTHYROXINE 25MCG TABLET (0.025MG) PO SCH (05:12)
[2019-07-28] MEDS: LEVOTHYROXINE 150MCG TABLET (0.15MG) PO SCH (05:12)
[2019-07-28 05:59] LABS: BASO % 0.2 % (0.0-1.0); EOS # 0.2 10^3/uL (0.0-0.5); EOS % 1.1 % (0.0-3.0); HEMATOCRIT 42.8 % (36.0-47.0); HEMOGLOBIN 13.7 g/dl (12.0-15.5); LYMPH # 1.3 10^3/uL (1.5-5.0); LYMPH % 9.2 % (24.0-44.0); MEAN CORPUSCULAR HEMOGLOBIN 28.9 pg (27.0-33.0); MEAN CORPUSCULAR VOLUME 90.3 fl (80.0-96.0); MONO # 1.6 10^3/uL (0.0-0.8); MONO % 11.8 % (0.0-5.0); NEUTROPHILS # 10.6 10^3/uL (1.5-8.5); NEUTROPHILS % 77.2 % (36.0-66.0); PLATELET COUNT, AUTOMATED 245 10^3/uL (150-450); RED BLOOD COUNT 4.74 10^6/uL (4.00-5.40); WHITE BLOOD COUNT 13.8 10^3/uL (4.0-10.0)
[2019-07-28 06:21] LABS: ALBUMIN 2.6 GM/DL (3.2-5.2); BILIRUBIN,TOTAL 0.6 MG/DL (0.2-1.0); C REACTIVE PROTEIN QUANTITATIV 14.7 MG/DL (0.00-0.30); CALCIUM LEVEL 9.3 MG/DL (8.8-10.2); CREATININE FOR GFR 1.21 MG/DL (0.55-1.30); GLOMERULAR FILTRATION RATE 46.6 (>39); POTASSIUM SERUM 3.3 MEQ/L (3.5-5.1); TOTAL PROTEIN 8.7 GM/DL (6.4-8.2)
[2019-07-28] MEDS: SYMBICORT 80/4.5MCG INHALER 6GM INH SCH ×2 (08:08→19:37)
--- NOTE | 2019-07-28 08:55 | IPNPDOC ---
Subjective Date Seen The patient was seen on 07/28/19. Subjective Chief Complaint/HPI No new issues or concerns. She reports she feels about the same as yesterday. Constitutional: Denies: Chills, Fever Pulmonary: Denies: Dyspnea, Cough Cardiovascular: Denies: Chest Pain, Palpitations Gastrointestinal: Denies: Nausea, Vomiting, Abdominal Pain, Diarrhea, Constipation Objective Physical Examination General Exam: Positive: Alert, Cooperative, No Acute Distress Neck Exam: Negative: Supple Chest Exam: Positive: Rales (Bibasilar fine rales - improved), Diminished Heart Exam: Positive: Rate Normal, Regular Rhythm Telemetry: Positive: Atrial fibrillation Abdomen Exam: Positive: Normal bowel sounds, Soft; Negative: Tenderness Extremity Exam: Negative: Edema Skin Exam: Positive: Rash (Venous stasis dermatitis on both shins with dry flaky skin and erythema with tenderness - improving. No ulceration) Psych Exam: Positive: Mental status NL Assessment /Plan Problems (1) Sepsis Status: Resolved Problem Text: 07/28 - S/P Zosyn x 5 days for GB strep + B/C. Now on Rocephin D#4 Etiology felt to be from skin/cellulitis or entry through healing ulcer on legs - Afebrile. WBC went up a little with switch from Zosyn to Rocephin - Now 13.8, but clinically no other sign of infectious process. MALIA 07/27 - No vegetations F/U BC x 2 negative. ESR = 16, CRP was 4.6 - now to 14.7. 07/27 - B/C x 2 grew GB strep - Inititally treated with Zosyn x 5 days. Now on Reocephin. Etiology uncertain - possible from cellulits although leg rash looks more like chronic venous dermatitis. WBC up slightly with change in abx. F/U BC x 2 pending. ESR only = 16, CRP = 4.6 MALIA scheduled today at 1:301/1 - BC+ GB Strep x 2, s/p Zosyn x 5 days - Abx swi tched to Rocephin 07/25, however WBC has gone back up slightly today (2) Acute on chronic diastolic (congestive) heart failure Status: Acute Response to Treatment: Stable, Improving Discussed With: Patient Problem Specific Plan: Monitor Clinically, Repeat Labs Problem Text: 07/28 - Clincally appears compensated now - Lasix switched to 40 mg po daily now. Also on Aldactone 100 mg daily Oxygen saturation in 90s on 3L NC She is on Oxygen 3L normally at home 07/27 - Clincally improving with Lasix 40 po TID. Remains on 4L NC however 07/25 - Continues to diurese on po Lasix 40 TID. I & O remain negative, but still clinically decompensated Venti-mask weaned to NC (3) Pneumonia Status: Acute Problem Text: 07/28 - Clinically improving on abx - CT angio chest 07/21 : 1. Bilateral ground-glass opacities may be secondary to atelectasis although multifocal pneumonitis can present in a similar fashion. 2. 7.4 mm noncalcified nodule right lower lobe. For patients at low risk (minimal or absent history of smoking and of other known risk factors), recommend CT at 6-12 months, then consider CT at 18-24 months. For patients at high risk (history of smoking or of other known risk factors), recommend CT at 6-12 months, then CT at 18-24 months. (Sumeet et al., Fleischner Society, 2017). 3. Right middle and lower lobe infiltrates with air bronchograms may be atelectatic although infection to be excluded clinically. 4. There is no aortic dissection or aneurysm. 5. There are no pulmonary emboli. Excessive artifact limits evaluation of the smaller distal pulmonary arteries. 07/23 -- I think volume overload is a more likely explanation of her dyspnea. Changed to Zosyn from Levaquin; she does not admit to cough, and I'm not certain that she has pneumonia. (4) Oral thrush Status: Acute Discussed With: Patient Problem Specific Plan: Monitor Clinically Problem Text: Mild oropharyngeal thrush was noted. I started her on nystatin swish and swallow. (5) Hypokalemia Problem Text: Her potassium was down to 3.3 today. I suspect this hypokalemia is from her more aggressive diuresis with loop diuretic yesterday. She is now on a combination of the loop diuretic and a potassium sparing agent. I think this will help keep her potassium levels in better control. I added one additional dose of 40 mEq orally and we will monitor her electrolytes carefully. (6) Atrial fibrillation Status: Chronic Problem Text: 07/27 - Diltiazem dose increased 1/2 - monitor trend COnt Eliquis (7) Cellulitis Problem Text: See above. (8) Cirrhosis Status: Chronic Problem Text: Likely secondary to NAFLD - No ascites on CT: 1. Examination of the liver demonstrates a lobular surface contour, and enlargement of the left and caudate lobes, findings consistent with cirrhosis. 2. There is moderate splenomegaly with a maximum span of 15.5 centimeters. No focal abnormalities demonstrated. 3. There has been a cholecystectomy. 4. There is a diffuse decrease in hepatic parenchymal density, consistent with fatty infiltration. 5. 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 6. There is diffuse pancreatic atrophy. 7. Mild diverticulosis is present in the distal colon. No diverticulitis. 8. There has been a hysterectomy. Hepatitis panel etc pending and F/U as outpatient (9) Diabetes mellitus Status: Chronic Response to Treatment: Stable Problem Text: slidng scale insulin and Levemir - (10) COPD (chronic obstructive pulmonary disease) Status: Chronic Response to Treatment: Stable Problem Text: Cont Symbicort & Nebs ordered. (11) HTN (hypertension) Status: Chronic Problem Specific Plan: Monitor Clinically Problem Text: BP stable with NTG paste D/C'd yesterday (12) Group B streptococcal infection Status: Acute Problem Text: see above (13) Lung nodule Onset Date: ~ 06/2019 Status: Chronic Problem Text: Will need outpatient f/u CT chest: 1. Bilateral ground-glass opacities may be secondary to atelectasis although multifocal pneumonitis can present in a similar fashion. 2. 7.4 mm noncalcified nodule right lower lobe. For patients at low risk (minimal or absent history of smoking and of other known risk factors), recommend CT at 6-12 months, then consider CT at 18-24 months. For patients at high risk (history of smoking or of other known risk factors), recommend CT at 6-12 months, then CT at 18-24 months. (Sumeet et al., Fleischner Society, 2017). 3. Right middle and lower lobe infiltrates with air bronchograms may be atelectatic although infection to be excluded clinically. 4. There is no aortic dissection or aneurysm. 5. There are no pulmonary emboli. Excessive artifact limits evaluation of the smaller distal pulmonary arteries. (14) Nausea Status: Resolved Problem Text: Patient requesting Mylanta Also give Zofran prn Increase bowel care Plan/VTE VTE Prophylaxis Ordered?: Yes (Nayla) Plan Therapy: PT Family Medicine Attending Note: I saw and examined Ms. Deal, discussed with NURYS Crowder. Agree with her note as documented. Her white count continued to go up a little bit today. More concerning her CRP went from 4 to 14. There is no obvious source for this increase. Based on this I decided to put her back on Zosyn. The Rocephin she's been on should be more than enough to treat the group B strep that was cultured out of her blood; nonetheless she's had increasing signs of infection. I did note very mild oral pharyngeal thrush today. I started her on nystatin swish and swallow. It's possible this is the cause of the elevation in her CRP and white count, but I'm not convinced enough of that to not change her antibiotic back to one that was successful in the past. I also note that she is continuing to have elevated blood sugars. Her home dose of basal insulin is 190 units. She is currently on 46 units a day. She required 12 units of sliding scale in the last 24 hours therefore I will add six units to her basal insulin for a total dose of 52 units now. She had some oral repletion of her potassium today. I'll recheck potassium and magnesium in the morning. 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 Cont PT VS, I&O, 24H, Fishbone Vital Signs/I&O Vital Signs Date Time Temp Pulse Resp B/P (MAP) Pulse Ox O2 Delivery O2 Flow Rate FiO2 07/28/19 06:00 91 Nasal Cannula 3.0 07/28/19 04:00 96.8 99 20 140/76 (97) 07/25/19 12:00 35 I&O- Last 24 Hours up to 6 AM 07/28/19 06:00 Intake Total 920 ml Output Total 800 ml Balance 120 ml Laboratory Data 24H LABS Laboratory Tests 2 07/27/19 12:48: Bedside Glucose (Misc Panel) 152H 07/27/19 17:21: Bedside Glucose (Misc Panel) 169H 07/27/19 20:16: Bedside Glucose (Misc Panel) 221H 07/28/19 05:46: Immature Granulocyte % (Auto) 0.5, Neutrophils (%) (Auto) 77.2H, Lymphocytes (%) (Auto) 9.2L, Monocytes (%) (Auto) 11.8H, Eosinophils (%) (Auto) 1.1, Basophils (%) (Auto) 0.2, Neutrophils # (Auto) 10.6H, Lymphocytes # (Auto) 1.3L, Monocytes # (Auto) 1.6H, Eosinophils # (Auto) 0.2, Basophils # (Auto) 0.0, Nucleated Red Blood Cells % (auto) 0.0, Anion Gap 8, Glomerular Filtration Rate 46.6, Calcium Level 9.3, Total Bilirubin 0.6, Aspartate Amino Transf (AST/SGOT) 8, Alanine Aminotransferase (ALT/SGPT) 16, Alkaline Phosphatase 81, C-Reactive Protein, Quantitative 14.70H, Total Protein 8.7H, Albumin 2.6L, Albumin/Globulin Ratio 0.43L CBC/BMP Laboratory Tests 07/28/19 05:46 Microbiology Microbiology 07/26/19 Blood Culture - Preliminary, Resulted No growth after 24 hours . All specim... 07/26/19 Blood Culture - Preliminary, Resulted No growth after 24 hours . All specim... 07/21/19 Blood Culture - Final, Complete Strep Agalactiae Group B 07/21/19 Respiratory Virus Panel (PCR) ([facility]) - Final, Complete 07/21/19 Blood Culture - Final, Complete Strep Agalactiae Group B MELVIN DURHAM PA-C Jul 28, 2019 8:55 am Alexsander De La Torre MD Jul 29, 2019 2:39 am
[2019-07-28] MEDS: FUROSEMIDE 40 MG TAB PO SCH (09:10)
[2019-07-28] MEDS: ROSUVASTATIN 10 MG TAB (CRESTOR) PO SCH (09:10)
[2019-07-28] MEDS: LORATADINE 10 MG TAB PO SCH (09:10)
[2019-07-28] MEDS: PANTOPRAZOLE 40MG TAB (PROTONIX) PO SCH (09:10)
[2019-07-28] MEDS: APIXABAN 5 MG TAB (ELIQUIS) PO SCH ×2 (09:10→21:08)
[2019-07-28] MEDS: ASCORBIC ACID 500 MG TAB PO SCH (09:10)
[2019-07-28] MEDS: FERROUS SULFATE 325MG TAB PO SCH ×3 (09:10→21:08)
[2019-07-28] MEDS: NYSTATIN 100,000 UNITS/GM TOPICAL PWD 15 GM TOP SCH ×2 (09:11→21:12)
[2019-07-28] MEDS: HumaLOG INSULIN (NovoLOG) PER UNIT SC SCH ×4 (09:11→21:09)
[2019-07-28] MEDS: HYDROCORTISONE 1% CREAM 30 GM TOP SCH ×2 (09:11→21:12)
[2019-07-28] MEDS: MIRALAX *UNIT DOSE* 17GM PACKET PO SCH (09:12)
[2019-07-28 10:47] LABS: HEPATITIS B SURFACE ANTIGEN NEGATIVE (NEGATIVE)
[2019-07-28 11:14] LABS: HEPATITIS B CORE ANTIBODY IGM NEGATIVE (NEGATIVE); HEPATITIS C VIRUS ABY INDEX 0.2 INDEX (<0.8)
[2019-07-28 11:17] LABS: HEPATITIS A ANTIBODY IGM NEGATIVE (NEGATIVE)
[2019-07-28] MEDS: PIPERACILLIN/TAZOBACTAM SOD 3.375 GM in D5W MINI-BAG PLUS 50 ML IV SCH ×2 (12:56→16:57)
[2019-07-28] MEDS ORDERED: POTASSIUM CHLORIDE 10 MEQ SR TABLET PO ONE (15:00)
[2019-07-28] MEDS: NYSTATIN 500,000 U/5 ML SUSP UDC SS SCH (21:07)
[2019-07-28] MEDS: SPIRONOLACTONE 50 MG TAB PO SCH (21:07)
[2019-07-28] MEDS: DOCUSATE SODIUM 100 MG CAP PO SCH (21:08)
[2019-07-28] MEDS: LEVEMIR (INSULIN DETEMIR) 1 UNITS/0.01ML SC SCH (21:10)
[2019-07-29 00:08] LABS: ANA (HEP2) Negative (.); ANTI-MITOCHONDRIAL ANTIBODY <20.0 Units (0.0-20.0)
[2019-07-29] MEDS: PIPERACILLIN/TAZOBACTAM SOD 3.375 GM in D5W MINI-BAG PLUS 50 ML IV SCH ×4 (00:18→17:43)
[2019-07-29] MEDS: IPRATROPIUM 0.5MG/ALBUTEROL 2.5MG INH SOL UD 3ML (DUONEB)(J7620) NEB SCH ×4 (01:34→20:00)
[2019-07-29] MEDS: ACETAMINOPHEN TAB 650MG DOSE (2X325MG) PO PRN ×3 (01:43→16:16)
[2019-07-29 06:00] VITALS: BP 142/64
[2019-07-29] MEDS: LEVOTHYROXINE 25MCG TABLET (0.025MG) PO SCH (06:18)
[2019-07-29] MEDS: LEVOTHYROXINE 150MCG TABLET (0.15MG) PO SCH (06:18)
[2019-07-29 06:30] LABS: BASO % 0.4 % (0.0-1.0); EOS # 0.2 10^3/uL (0.0-0.5); EOS % 1.3 % (0.0-3.0); HEMATOCRIT 40.7 % (36.0-47.0); HEMOGLOBIN 12.9 g/dl (12.0-15.5); LYMPH # 1.1 10^3/uL (1.5-5.0); MEAN CORPUSCULAR HEMOGLOBIN 28.8 pg (27.0-33.0); MEAN CORPUSCULAR HGB CONC 31.7 g/dl (32.0-36.5); MEAN CORPUSCULAR VOLUME 90.8 fl (80.0-96.0); MONO # 1.3 10^3/uL (0.0-0.8); MONO % 11.3 % (0.0-5.0); NEUTROPHILS # 8.5 10^3/uL (1.5-8.5); NEUTROPHILS % 76.5 % (36.0-66.0); PLATELET COUNT, AUTOMATED 253 10^3/uL (150-450); RED BLOOD COUNT 4.48 10^6/uL (4.00-5.40); WHITE BLOOD COUNT 11.1 10^3/uL (4.0-10.0)
[2019-07-29 06:56] LABS: ALBUMIN 2.4 GM/DL (3.2-5.2); BILIRUBIN,TOTAL 0.5 MG/DL (0.2-1.0); C REACTIVE PROTEIN QUANTITATIV 12.1 MG/DL (0.00-0.30); CALCIUM LEVEL 9.1 MG/DL (8.8-10.2); CREATININE FOR GFR 1.25 MG/DL (0.55-1.30); GLOMERULAR FILTRATION RATE 44.8 (>39); MAGNESIUM LEVEL 2.9 MG/DL (1.8-2.4); POTASSIUM SERUM 3.8 MEQ/L (3.5-5.1); TOTAL PROTEIN 8.3 GM/DL (6.4-8.2)
--- NOTE | 2019-07-29 07:34 | IPN ---
DATE: 07/29/2019 Shelia is seen on [facility]. She feels a little better than yesterday. No fever. No chills. Her labs are improving as well. PHYSICAL EXAMINATION: Vital signs stable. Blood pressure 142/64. Alert and conversant. Lungs clear. Heart regular rhythm. Abdomen soft, nontender. No peripheral edema. LABS: White count is down to 11.4 and C-reactive protein is down to 12. IMPRESSION: Cellulitis of the legs with bacteremia. PLAN: She is now on Zosyn. She seems to be responding to this with improved labs indices. The rest of her medical problems seem stable. The plan is to continue current treatment through the weekend.
[2019-07-29] MEDS: SYMBICORT 80/4.5MCG INHALER 6GM INH SCH ×2 (08:45→20:41)
[2019-07-29] MEDS: FERROUS SULFATE 325MG TAB PO SCH ×3 (08:53→21:13)
[2019-07-29] MEDS: LORATADINE 10 MG TAB PO SCH (08:53)
[2019-07-29] MEDS: ASCORBIC ACID 500 MG TAB PO SCH (08:53)
[2019-07-29] MEDS: APIXABAN 5 MG TAB (ELIQUIS) PO SCH ×2 (08:53→21:12)
[2019-07-29] MEDS: ROSUVASTATIN 10 MG TAB (CRESTOR) PO SCH (08:53)
[2019-07-29] MEDS: FUROSEMIDE 40 MG TAB PO SCH (08:54)
[2019-07-29] MEDS: PANTOPRAZOLE 40MG TAB (PROTONIX) PO SCH (08:54)
[2019-07-29] MEDS: HumaLOG INSULIN (NovoLOG) PER UNIT SC SCH ×4 (08:56→21:14)
[2019-07-29] MEDS: HYDROCORTISONE 1% CREAM 30 GM TOP SCH ×2 (08:56→21:14)
[2019-07-29] MEDS: MIRALAX *UNIT DOSE* 17GM PACKET PO SCH (08:57)
[2019-07-29] MEDS: NYSTATIN 100,000 UNITS/GM TOPICAL PWD 15 GM TOP SCH ×2 (08:57→21:15)
[2019-07-29] MEDS: NYSTATIN 500,000 U/5 ML SUSP UDC SS SCH ×4 (08:57→21:13)
[2019-07-29 14:00] VITALS: BP 143/65
[2019-07-29] MEDS: ONDANSETRON 4 MG TAB (S0181) PO PRN (16:21)
[2019-07-29] MEDS: DOCUSATE SODIUM 100 MG CAP PO SCH (21:12)
[2019-07-29] MEDS: MAALOX 30 ML SUSP *UDC PO PRN (21:12)
[2019-07-29] MEDS: SPIRONOLACTONE 50 MG TAB PO SCH (21:13)
[2019-07-29] MEDS: LEVEMIR (INSULIN DETEMIR) 1 UNITS/0.01ML SC SCH (21:14)
[2019-07-29 22:00] VITALS: BP 145/64
[2019-07-30] MEDS: ACETAMINOPHEN TAB 650MG DOSE (2X325MG) PO PRN ×3 (00:21→22:37)
[2019-07-30] MEDS: PIPERACILLIN/TAZOBACTAM SOD 3.375 GM in D5W MINI-BAG PLUS 50 ML IV SCH ×5 (00:21→23:59)
[2019-07-30] MEDS: IPRATROPIUM 0.5MG/ALBUTEROL 2.5MG INH SOL UD 3ML (DUONEB)(J7620) NEB SCH ×4 (01:02→20:58)
[2019-07-30] MEDS: LEVOTHYROXINE 25MCG TABLET (0.025MG) PO SCH (05:45)
[2019-07-30] MEDS: LEVOTHYROXINE 150MCG TABLET (0.15MG) PO SCH (05:45)
[2019-07-30 06:00] VITALS: BP 148/68
[2019-07-30 06:38] LABS: HEMATOCRIT 39.5 % (36.0-47.0); HEMOGLOBIN 12.5 g/dl (12.0-15.5); MEAN CORPUSCULAR HEMOGLOBIN 28.7 pg (27.0-33.0); MEAN CORPUSCULAR HGB CONC 31.6 g/dl (32.0-36.5); MEAN CORPUSCULAR VOLUME 90.6 fl (80.0-96.0); PLATELET COUNT, AUTOMATED 257 10^3/uL (150-450); RED BLOOD COUNT 4.36 10^6/uL (4.00-5.40); WHITE BLOOD COUNT 9.7 10^3/uL (4.0-10.0)
[2019-07-30 07:09] LABS: C REACTIVE PROTEIN QUANTITATIV 8.43 MG/DL (0.00-0.30); CALCIUM LEVEL 9.3 MG/DL (8.8-10.2); CREATININE FOR GFR 1.22 MG/DL (0.55-1.30); GLOMERULAR FILTRATION RATE 46.1 (>39); POTASSIUM SERUM 3.4 MEQ/L (3.5-5.1)
[2019-07-30] MEDS: SYMBICORT 80/4.5MCG INHALER 6GM INH SCH ×2 (08:12→20:58)
[2019-07-30] MEDS ORDERED: POTASSIUM CHLORIDE 10 MEQ SR TABLET PO ONE (08:15)
[2019-07-30] MEDS: ROSUVASTATIN 10 MG TAB (CRESTOR) PO SCH (08:51)
[2019-07-30] MEDS: PANTOPRAZOLE 40MG TAB (PROTONIX) PO SCH (08:51)
[2019-07-30] MEDS: NYSTATIN 500,000 U/5 ML SUSP UDC SS SCH ×4 (08:51→21:23)
[2019-07-30] MEDS: FERROUS SULFATE 325MG TAB PO SCH ×3 (08:51→21:24)
[2019-07-30] MEDS: APIXABAN 5 MG TAB (ELIQUIS) PO SCH ×2 (08:52→21:24)
[2019-07-30] MEDS: FUROSEMIDE 40 MG TAB PO SCH (08:52)
[2019-07-30] MEDS: LORATADINE 10 MG TAB PO SCH (08:52)
[2019-07-30] MEDS: HumaLOG INSULIN (NovoLOG) PER UNIT SC SCH ×4 (08:53→21:23)
[2019-07-30] MEDS: ASCORBIC ACID 500 MG TAB PO SCH (08:53)
[2019-07-30] MEDS: MIRALAX *UNIT DOSE* 17GM PACKET PO SCH (08:54)
[2019-07-30] MEDS: HYDROCORTISONE 1% CREAM 30 GM TOP SCH ×2 (08:54→21:22)
[2019-07-30] MEDS: NYSTATIN 100,000 UNITS/GM TOPICAL PWD 15 GM TOP SCH ×2 (08:54→21:22)
[2019-07-30] MEDS: ONDANSETRON 4 MG TAB (S0181) PO PRN ×2 (09:49→17:49)
--- NOTE | 2019-07-30 11:01 | REP ---
Left upper extremity duplex venous ultrasound: History: Rule out DVT. Left arm soreness. Pacemaker. The patient on anticoagulation therapy. Findings: The left axillary, brachial, basilic, and cephalic veins are anechoic and compressible in the left upper extremity. Color flow imaging is homogeneous. Spectral Doppler interrogation is unremarkable. There is no evidence of left upper extremity venous thrombosis in these vessels . There is very slow nearly stagnant flow in the left internal jugular vein noted. The vein is fully compressible. There is no evidence of acute thrombus. There is a tiny linear echogenic structure in the jugular vein near its junction with the innominate vein which may be the result of old thrombus. Impression: Tiny echogenic structure in the left internal jugular vein near its junction with the subclavian vein. Stagnant flow in the jugular vein but no thrombus seen. Pacemaker noted in the subclavian and innominate vein. Otherwise negative left upper extremity duplex venous ultrasound. No evidence of acute venous thrombosis. Electronically Signed by Benjamin Fox MD 07/30/2019 10:53 A
--- NOTE | 2019-07-30 12:13 | IPN ---
DATE: 07/30/2019 Shelia feels better. I think she might be turning the corner. She says her left arm feels swollen and tender up in the biceps. No injury. No precipitating event. PHYSICAL EXAMINATION: Afebrile. Vital signs stable. Tender to palpate bicep left arm. Left arm is a little more edematous than the right. Lungs clear. Heart regular rhythm Abdomen soft, nontender. LABS: White count is down to 9.7, CRPs down to 8.4, potassium 3.4. IMPRESSION: 1. Cellulitis legs with bacteremia: Responding to Zosyn. She did not clinically respond to change to Rocephin. Would recommend staying on Zosyn at least a few more days. 2. Hypokalemia: Supplement with potassium has been given. 3. Swelling left upper extremity: Doppler ultrasound to rule out deep venous thrombosis (DVT) is ordered.
[2019-07-30 14:00] VITALS: BP 143/62
[2019-07-30] MEDS: LEVEMIR (INSULIN DETEMIR) 1 UNITS/0.01ML SC SCH (21:22)
[2019-07-30] MEDS: SPIRONOLACTONE 50 MG TAB PO SCH (21:24)
[2019-07-30] MEDS: DOCUSATE SODIUM 100 MG CAP PO SCH (21:24)
[2019-07-30 22:00] VITALS: BP 151/71
[2019-07-31] MEDS: IPRATROPIUM 0.5MG/ALBUTEROL 2.5MG INH SOL UD 3ML (DUONEB)(J7620) NEB SCH ×4 (01:47→19:46)
[2019-07-31] MEDS: PIPERACILLIN/TAZOBACTAM SOD 3.375 GM in D5W MINI-BAG PLUS 50 ML IV SCH ×3 (05:27→17:53)
[2019-07-31] MEDS: LEVOTHYROXINE 150MCG TABLET (0.15MG) PO SCH (05:27)
[2019-07-31] MEDS: LEVOTHYROXINE 25MCG TABLET (0.025MG) PO SCH (05:27)
[2019-07-31] MEDS: ACETAMINOPHEN TAB 650MG DOSE (2X325MG) PO PRN ×3 (05:27→21:54)
[2019-07-31 06:00] VITALS: BP 146/74
[2019-07-31 08:18] LABS: HEMATOCRIT 37.2 % (36.0-47.0); HEMOGLOBIN 11.6 g/dl (12.0-15.5); MEAN CORPUSCULAR HEMOGLOBIN 28.7 pg (27.0-33.0); MEAN CORPUSCULAR HGB CONC 31.2 g/dl (32.0-36.5); MEAN CORPUSCULAR VOLUME 92.1 fl (80.0-96.0); PLATELET COUNT, AUTOMATED 233 10^3/uL (150-450); RED BLOOD COUNT 4.04 10^6/uL (4.00-5.40); WHITE BLOOD COUNT 9.9 10^3/uL (4.0-10.0)
[2019-07-31 08:41] LABS: ALBUMIN 2.3 GM/DL (3.2-5.2); BILIRUBIN,TOTAL 0.5 MG/DL (0.2-1.0); C REACTIVE PROTEIN QUANTITATIV 8.8 MG/DL (0.00-0.30); CREATININE FOR GFR 1.14 MG/DL (0.55-1.30); GLOMERULAR FILTRATION RATE 49.9 (>39); POTASSIUM SERUM 3.6 MEQ/L (3.5-5.1); TOTAL PROTEIN 8.1 GM/DL (6.4-8.2)
[2019-07-31] MEDS: SYMBICORT 80/4.5MCG INHALER 6GM INH SCH ×3 (08:49→22:30)
[2019-07-31] MEDS: MIRALAX *UNIT DOSE* 17GM PACKET PO SCH (09:00)
[2019-07-31] MEDS: HumaLOG INSULIN (NovoLOG) PER UNIT SC SCH ×4 (09:01→21:00)
[2019-07-31] MEDS: FERROUS SULFATE 325MG TAB PO SCH ×3 (09:01→21:32)
[2019-07-31] MEDS: NYSTATIN 100,000 UNITS/GM TOPICAL PWD 15 GM TOP SCH ×2 (09:01→21:31)
[2019-07-31] MEDS: PANTOPRAZOLE 40MG TAB (PROTONIX) PO SCH (09:01)
[2019-07-31] MEDS: ROSUVASTATIN 10 MG TAB (CRESTOR) PO SCH (09:01)
[2019-07-31] MEDS: NYSTATIN 500,000 U/5 ML SUSP UDC SS SCH ×4 (09:01→21:32)
[2019-07-31] MEDS: HYDROCORTISONE 1% CREAM 30 GM TOP SCH ×2 (09:02→21:31)
[2019-07-31] MEDS: FUROSEMIDE 40 MG TAB PO SCH (09:02)
[2019-07-31] MEDS: APIXABAN 5 MG TAB (ELIQUIS) PO SCH ×2 (09:02→21:32)
[2019-07-31] MEDS: LORATADINE 10 MG TAB PO SCH (09:02)
[2019-07-31] MEDS: ASCORBIC ACID 500 MG TAB PO SCH (09:02)
[2019-07-31 10:21] LABS: BASO % 0.3 % (0.0-1.0); EOS # 0.2 10^3/uL (0.0-0.5); EOS % 1.7 % (0.0-3.0); LYMPH % 10.3 % (24.0-44.0); MONO % 10.2 % (0.0-5.0); NEUTROPHILS # 7.7 10^3/uL (1.5-8.5)
[2019-07-31 10:24] LABS: PLATELET ESTIMATE NORMAL (NORMAL)
--- NOTE | 2019-07-31 10:51 | IPNPDOC ---
Subjective Date Seen The patient was seen on 07/31/19. Subjective Chief Complaint/HPI pneumonia, bacteremia Events since last encounter Patient is feeling well. c/o left upper arm pain. Tolerating Zosyn well. Constitutional: Denies: Chills, Fever, Night Sweats Pulmonary: Denies: Dyspnea, Cough Cardiovascular: Denies: Chest Pain, Palpitations, Orthopnea, Paroxysmal Noc. Dyspnea, Lt Headedness Gastrointestinal: Denies: Nausea, Vomiting, Abdominal Pain, Diarrhea, Constipation Psych: Reports: Mood Normal; Denies: Depression, Memory Issues Objective Physical Examination General Exam: Positive: Alert, Cooperative, No Acute Distress Neck Exam: Negative: Supple Chest Exam: Positive: Rales (Bibasilar fine rales - improved), Diminished Heart Exam: Positive: Rate Normal, Regular Rhythm Telemetry: Positive: Atrial fibrillation Abdomen Exam: Positive: Normal bowel sounds, Soft; Negative: Tenderness Extremity Exam: Positive: Other (left upper arm with tightening and pain on palpation); Negative: Edema Skin Exam: Positive: Rash (Venous stasis dermatitis on both shins with dry flaky skin and erythema with tenderness - improving. No ulceration) Psych Exam: Positive: Mental status NL Assessment /Plan Problems (1) Sepsis Status: Resolved Problem Text: 07/30/18: Patient switched back to Zosyn and is improving.. Will continue Zosyn for 2 more days. 07/28 - S/P Zosyn x 5 days for GB strep + B/C. Now on Rocephin D#4 Etiology felt to be from skin/cellulitis or entry through healing ulcer on legs - Afebrile. WBC went up a little with switch from Zosyn to Rocephin - Now 13.8, but cli nically no other sign of infectious process. MALIA 07/27 - No vegetations F/U BC x 2 negative. ESR = 16, CRP was 4.6 - now to 14.7. 07/27 - B/C x 2 grew GB strep - Inititally treated with Zosyn x 5 days. Now on Reocephin. Etiology uncertain - possible from cellulits although leg rash looks more like chronic venous dermatitis. WBC up slightly with change in abx. F/U BC x 2 pending. ESR only = 16, CRP = 4.6 MALIA scheduled today at 1:301/1 - BC+ GB Strep x 2, s/p Zosyn x 5 days - Abx switched to Rocephin 07/25, however WBC has gone back up slightly today (2) Acute on chronic diastolic (congestive) heart failure Status: Acute Response to Treatment: Stable, Improving Discussed With: Patient Problem Specific Plan: Monitor Clinically, Repeat Labs Problem Text: 07/28 - Clincally appears compensated now - Lasix switched to 40 mg po daily now. Also on Aldactone 100 mg daily Oxygen saturation in 90s on 3L NC She is on Oxygen 3L normally at home 07/27 - Clincally improving with Lasix 40 po TID. Remains on 4L NC however 07/25 - Continues to diurese on po Lasix 40 TID. I & O remain negative, but still clinically decompensated Venti-mask weaned to NC (3) Pneumonia Status: Acute Problem Text: 07/28 - Clinically improving on abx - CT angio chest 07/21 : 1. Bilateral ground-glass opacities may be secondary to atelectasis although multifocal pneumonitis can present in a similar fashion. 2. 7.4 mm noncalcified nodule right lower lobe. For patients at low risk (minimal or absent history of smoking and of other known risk factors), recommend CT at 6-12 months, then consider CT at 18-24 months. For patients at high risk (history of smoking or of other known risk factors), recommend CT at 6-12 months, then CT at 18-24 months. (Sumeet et al., Fleischner Society, 2017). 3. Right middle and lower lobe infiltrates with air bronchograms may be atelectatic although infection to be excluded clinically. 4. There is no aortic dissection or aneurysm. 5. There are no pulmonary emboli. Excessive artifact limits evaluation of the smaller distal pulmonary arteries. 07/23 -- I think volume overload is a more likely explanation of her dyspnea. Changed to Zosyn from Levaquin; she does not admit to cough, and I'm not certain that she has pneumonia. (4) Atrial fibrillation Status: Chronic Problem Text: 07/27 - Diltiazem dose increased 2 - monitor trend COnt Eliquis (5) Cellulitis Problem Text: See above. (6) Cirrhosis Status: Chronic Problem Text: Likely secondary to NAFLD - No ascites on CT: 1. Examination of the liver demonstrates a lobular surface contour, and enlargement of the left and caudate lobes, findings consistent with cirrhosis. 2. There is moderate splenomegaly with a maximum span of 15.5 centimeters. No focal abnormalities demonstrated. 3. There has been a cholecystectomy. 4. There is a diffuse decrease in hepatic parenchymal density, consistent with fatty infiltration. 5. 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 6. There is diffuse pancreatic atrophy. 7. Mild diverticulosis is present in the distal colon. No diverticulitis. 8. There has been a hysterectomy. Hepatitis panel etc pending and F/U as outpatient (7) Diabetes mellitus Status: Chronic Response to Treatment: Stable Problem Text: slidng scale insulin and Levemir - (8) COPD (chronic obstructive pulmonary disease) Status: Chronic Response to Treatment: Stable Problem Text: Cont Symbicort & Nebs ordered. (9) HTN (hypertension) Status: Chronic Problem Specific Plan: Monitor Clinically Problem Text: BP stable with NTG paste D/C'd yesterday (10) Group B streptococcal infection Status: Acute Problem Text: see above (11) Lung nodule Onset Date: ~ 06/2019 Status: Chronic Problem Text: Will need outpatient f/u CT chest: 1. Bilateral ground-glass opacities may be secondary to atelectasis although multifocal pneumonitis can present in a similar fashion. 2. 7.4 mm noncalcified nodule right lower lobe. For patients at low risk (minimal or absent history of smoking and of other known risk factors), recommend CT at 6-12 months, then consider CT at 18-24 months. For patients at high risk (history of smoking or of other known risk factors), recommend CT at 6-12 months, then CT at 18-24 months. (Sumeet et al., Fleischner Society, 2017). 3. Right middle and lower lobe infiltrates with air bronchograms may be atelectatic although infection to be excluded clinically. 4. There is no aortic dissection or aneurysm. 5. There are no pulmonary emboli. Excessive artifact limits evaluation of the smaller distal pulmonary arteries. (12) Nausea Status: Resolved Problem Text: Patient requesting Mylanta Also give Zofran prn Increase bowel care (13) Oral thrush Status: Resolved Discussed With: Patient Problem Specific Plan: Monitor Clinically Problem Text: Mild oropharyngeal thrush was noted. I started her on nystatin swish and swallow. (14) Hypokalemia Status: Resolved Problem Text: Her potassium was down to 3.3 today. I suspect this hypokalemia is from her more aggressive diuresis with loop diuretic yesterday. She is now on a combination of the loop diuretic and a potassium sparing agent. I think this will help keep her potassium levels in better control. I added one additional dose of 40 mEq orally and we will monitor her electrolytes carefully. Plan/VTE VTE Prophylaxis Ordered?: Yes (Nayla) Plan Therapy: PT VS, I&O, 24H, Fishbone Vital Signs/I&O Vital Signs Date Time Temp Pulse Resp B/P (MAP) Pulse Ox O2 Delivery O2 Flow Rate FiO2 07/31/19 09:02 89 146/74 07/31/19 07:53 3.0 07/31/19 06:00 97.8 20 89 Nasal Cannula 07/25/19 12:00 35 I&O- Last 24 Hours up to 6 AM 07/31/19 06:00 Intake Total 1720 ml Output Total 1100 ml Balance 620 ml Laboratory Data 24H LABS Laboratory Tests 2 07/30/19 11:24: Bedside Glucose (Misc Panel) 291H 07/30/19 16:33: Bedside Glucose (Misc Panel) 284H 07/30/19 20:41: Bedside Glucose (Misc Panel) 302H 07/31/19 07:11: Immature Granulocyte % (Auto) 0.5, Neutrophils (%) (Auto) 77.0H, Lymphocytes (%) (Auto) 10.3L, Monocytes (%) (Auto) 10.2H, Eosinophils (%) (Auto) 1.7, Basophils (%) (Auto) 0.3, Immature Granulocyte # (Auto) 0.1H, Neutrophils # (Auto) 7.7, Lymphocytes # (Auto) 1.0L, Monocytes # (Auto) 1.0H, Eosinophils # (Auto) 0.2, Basophils # (Auto) 0.0, Nucleated Red Blood Cells % (auto) 0.0, Platelet Estimate NORMAL, Anion Gap 7L, Glomerular Filtration Rate 49.9, Calcium Level 9.0, Total Bilirubin 0.5, Aspartate Amino Transf (AST/SGOT) 10, Alanine Aminotransferase (ALT/SGPT) 16, Alkaline Phosphatase 71, C-Reactive Protein, Quantitative 8.80H, Total Protein 8.1, Albumin 2.3L, Albumin/Globulin Ratio 0.40L CBC/BMP Laboratory Tests 07/31/19 07:11 Microbiology Microbiology 07/26/19 Blood Culture - Preliminary, Resulted No Growth after 72 hours. All specime... 07/26/19 Blood Culture - Final, Complete NO GROWTH AFTER 5 DAYS 07/21/19 Blood Culture - Final, Complete Strep Agalactiae Group B 07/21/19 Respiratory Virus Panel (PCR) ([facility]) - Final, Complete 07/21/19 Blood Culture - Final, Complete Strep Agalactiae Group B Elma Ramon [employer] Jul 31, 2019 10:51
[2019-07-31] MEDS: ONDANSETRON 4 MG TAB (S0181) PO PRN (12:23)
[2019-07-31] MEDS: ANALGESIC BALM CRM 120 GM TOP SCH ×3 (14:03→21:31)
[2019-07-31 15:11] VITALS: BP 143/75
[2019-07-31 20:22] VITALS: BP 146/67
[2019-07-31] MEDS: LEVEMIR (INSULIN DETEMIR) 1 UNITS/0.01ML SC SCH (21:31)
[2019-07-31] MEDS: DOCUSATE SODIUM 100 MG CAP PO SCH (21:32)
[2019-07-31] MEDS: SPIRONOLACTONE 50 MG TAB PO SCH (21:32)
[2019-08-01] MEDS: PIPERACILLIN/TAZOBACTAM SOD 3.375 GM in D5W MINI-BAG PLUS 50 ML IV SCH ×4 (00:36→17:17)
[2019-08-01] MEDS: IPRATROPIUM 0.5MG/ALBUTEROL 2.5MG INH SOL UD 3ML (DUONEB)(J7620) NEB SCH ×4 (02:00→20:00)
[2019-08-01] MEDS: ACETAMINOPHEN TAB 650MG DOSE (2X325MG) PO PRN ×2 (04:30→17:19)
[2019-08-01] MEDS: LEVOTHYROXINE 150MCG TABLET (0.15MG) PO SCH (05:42)
[2019-08-01] MEDS: LEVOTHYROXINE 25MCG TABLET (0.025MG) PO SCH (05:42)
[2019-08-01 05:46] VITALS: BP 141/74
[2019-08-01 06:54] LABS: HEMATOCRIT 37.9 % (36.0-47.0); MEAN CORPUSCULAR HEMOGLOBIN 29.1 pg (27.0-33.0); MEAN CORPUSCULAR HGB CONC 31.7 g/dl (32.0-36.5); MEAN CORPUSCULAR VOLUME 91.8 fl (80.0-96.0); PLATELET COUNT, AUTOMATED 249 10^3/uL (150-450); RED BLOOD COUNT 4.13 10^6/uL (4.00-5.40); WHITE BLOOD COUNT 11.1 10^3/uL (4.0-10.0)
[2019-08-01 07:23] LABS: CALCIUM LEVEL 9.7 MG/DL (8.8-10.2); CREATININE FOR GFR 1.11 MG/DL (0.55-1.30); GLOMERULAR FILTRATION RATE 51.4 (>39); POTASSIUM SERUM 3.6 MEQ/L (3.5-5.1)
[2019-08-01] MEDS: SYMBICORT 80/4.5MCG INHALER 6GM INH SCH (07:41)
[2019-08-01] MEDS: MIRALAX *UNIT DOSE* 17GM PACKET PO SCH (08:44)
[2019-08-01] MEDS: ROSUVASTATIN 10 MG TAB (CRESTOR) PO SCH (08:44)
[2019-08-01] MEDS: NYSTATIN 500,000 U/5 ML SUSP UDC SS SCH ×4 (08:44→21:54)
[2019-08-01] MEDS: FUROSEMIDE 40 MG TAB PO SCH (08:45)
[2019-08-01] MEDS: HumaLOG INSULIN (NovoLOG) PER UNIT SC SCH ×4 (08:45→21:55)
[2019-08-01] MEDS: PANTOPRAZOLE 40MG TAB (PROTONIX) PO SCH (08:45)
[2019-08-01] MEDS: FERROUS SULFATE 325MG TAB PO SCH ×3 (08:45→21:53)
[2019-08-01] MEDS: LORATADINE 10 MG TAB PO SCH (08:46)
[2019-08-01] MEDS: ASCORBIC ACID 500 MG TAB PO SCH (08:46)
[2019-08-01] MEDS: APIXABAN 5 MG TAB (ELIQUIS) PO SCH ×2 (08:46→21:53)
[2019-08-01] MEDS: NYSTATIN 100,000 UNITS/GM TOPICAL PWD 15 GM TOP SCH ×2 (08:46→21:56)
[2019-08-01] MEDS: HYDROCORTISONE 1% CREAM 30 GM TOP SCH ×2 (08:46→21:56)
[2019-08-01] MEDS: ANALGESIC BALM CRM 120 GM TOP SCH ×3 (08:46→21:56)
--- NOTE | 2019-08-01 09:39 | REP ---
Chest x-ray: Two views. History: Rales. Comparison study: July 23, 2019. Findings: Right hemidiaphragm is somewhat elevated. There is discoid atelectasis in the right base and left perihilar region. The right base atelectatic changes are more prominent. A bipolar pacemaker is again seen in the right heart via the left side. Pulmonary vasculature is slightly cephalized. Vascular markings are improved from the 07/23/2019 study. Impression: Coarse discoid atelectatic change above the elevated right hemidiaphragm in the right base. Pacemaker in place. Mild cephalization. Electronically Signed by Benjamin Fox MD 08/01/2019 10:36 A
--- NOTE | 2019-08-01 11:39 | IPNPDOC ---
Subjective Date Seen The patient was seen on 08/01/19. Subjective Chief Complaint/HPI sepsis Events since last encounter COntinues to improve. mild improvement noted on CXR. her biggest c/o today is LUE pain. No relief with Gilles mireles cream. PT recommending heat/ice. Constitutional: Denies: Chills, Fever, Night Sweats Pulmonary: Reports: Dyspnea (chronic, at baseline) Cardiovascular: Denies: Chest Pain, Palpitations, Orthopnea, Paroxysmal Noc. Dy spnea, Lt Headedness Gastrointestinal: Denies: Nausea, Vomiting, Abdominal Pain, Diarrhea, Constipation Psych: Reports: Mood Normal; Denies: Depression, Memory Issues Objective Physical Examination General Exam: Positive: Alert, Cooperative, No Acute Distress Neck Exam: Negative: Supple Chest Exam: Positive: Rales (Bibasilar fine rales - improved), Diminished Heart Exam: Positive: Rate Normal, Regular Rhythm Telemetry: Positive: Atrial fibrillation Abdomen Exam: Positive: Normal bowel sounds, Soft; Negative: Tenderness Extremity Exam: Positive: Other (left upper arm with tightening and pain on palpation); Negative: Edema Skin Exam: Positive: Rash (Venous stasis dermatitis on both shins with dry flaky skin and erythema with tenderness - improving. No ulceration) Psych Exam: Positive: Mental status NL Assessment /Plan Problems (1) Sepsis Status: Resolved Problem Text: 07/31/19: Patient switched back to Zosyn and is improving.. Will continue Zosyn for 2 more days. 07/28 - S/P Zosyn x 5 days for GB strep + B/C. Now on Rocephin D#4 Etiology felt to be from skin/cellulitis or entry through healing ulcer on legs - Afebrile. WBC went up a little with switch from Zosyn to Rocephin - Now 13.8, but clinically no other sign of infectious process. MALIA 07/27 - No vegetations F/U BC x 2 negative. ESR = 16, CRP was 4.6 - now to 14.7. 07/27 - B/C x 2 grew GB strep - Inititally treated with Zosyn x 5 days. Now on Reocephin. Etiology uncertain - possible from cellulits although leg rash looks more like chronic venous dermatitis. WBC up slightly with change in abx. F/U BC x 2 pending. ESR only = 16, CRP = 4.6 MALIA scheduled today at 1:301/1 - BC+ GB Strep x 2, s/p Zosyn x 5 days - Abx switched to Rocephin 07/25, however WBC has gone back up slightly today (2) Acute on chronic diastolic (congestive) heart failure Status: Acute Response to Treatment: Stable, Improving Discussed With: Patient Problem Specific Plan: Monitor Clinically, Repeat Labs Problem Text: 07/28 - Clincally appears compensated now - Lasix switched to 40 mg po daily now. Also on Aldactone 100 mg daily Oxygen saturation in 90s on 3L NC She is on Oxygen 3L normally at home 07/27 - Clincally improving with Lasix 40 po TID. Remains on 4L NC however 07/25 - Continues to diurese on po Lasix 40 TID. I & O remain negative, but still clinically decompensated Venti-mask weaned to NC (3) Pneumonia Status: Acute Problem Text: 07/28 - Clinically improving on abx - CT angio chest 07/21 : 1. Bilateral ground-glass opacities may be secondary to atelectasis although multifocal pneumonitis can present in a similar fashion. 2. 7.4 mm noncalcified nodule right lower lobe. For patients at low risk (minimal or absent history of smoking and of other known risk factors), recommend CT at 6-12 months, then consider CT at 18-24 months. For patients at high risk (history of smoking or of other known risk factors), recommend CT at 6-12 months, then CT at 18-24 months. (Sumeet et al., Fleischner Society, 2017). 3. Right middle and lower lobe infiltrates with air bronchograms may be atelectatic although infection to be excluded clinically. 4. There is no aortic dissection or aneurysm. 5. There are no pulmonary emboli. Excessive artifact limits evaluation of the smaller distal pulmonary arteries. 07/23 -- I think volume overload is a more likely explanation of her dyspnea. Changed to Zosyn from Levaquin; she does not admit to cough, and I'm not certain that she has pneumonia. (4) Atrial fibrillation Status: Chronic Problem Text: 07/27 - Diltiazem dose increased 2 - monitor trend COnt Eliquis (5) Cellulitis Problem Text: See above. (6) Cirrhosis Status: Chronic Problem Text: Likely secondary to NAFLD - No ascites on CT: 1. Examination of the liver demonstrates a lobular surface contour, and enlargement of the left and caudate lobes, findings consistent with cirrhosis. 2. There is moderate splenomegaly with a maximum span of 15.5 centimeters. No focal abnormalities demonstrated. 3. There has been a cholecystectomy. 4. There is a diffuse decrease in hepatic parenchymal density, consistent with fatty infiltration. 5. 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 6. There is diffuse pancreatic atrophy. 7. Mild diverticulosis is present in the distal colon. No diverticulitis. 8. There has been a hysterectomy. Hepatitis panel etc pending and F/U as outpatient (7) Diabetes mellitus Status: Chronic Response to Treatment: Stable Problem Text: slidng scale insulin and Levemir - (8) COPD (chronic obstructive pulmonary disease) Status: Chronic Response to Treatment: Stable Problem Text: Cont Symbicort & Nebs ordered. (9) HTN (hypertension) Status: Chronic Problem Specific Plan: Monitor Clinically Problem Text: BP stable with NTG paste D/C'd yesterday (10) Group B streptococcal infection Status: Acute Problem Text: see above (11) Lung nodule Onset Date: ~ 06/2019 Status: Chronic Problem Text: Will need outpatient f/u CT chest: 1. Bilateral ground-glass opacities may be secondary to atelectasis although multifocal pneumonitis can present in a similar fashion. 2. 7.4 mm noncalcified nodule right lower lobe. For patients at low risk (minimal or absent history of smoking and of other known risk factors), recommend CT at 6-12 months, then consider CT at 18-24 months. For patients at high risk (history of smoking or of other known risk factors), recommend CT at 6-12 months, then CT at 18-24 months. (Sumeet et al., Fleischner Society, 2017). 3. Right middle and lower lobe infiltrates with air bronchograms may be atelectatic although infection to be excluded clinically. 4. There is no aortic dissection or aneurysm. 5. There are no pulmonary emboli. Excessive artifact limits evaluation of the smaller distal pulmonary arteries. (12) Nausea Status: Resolved Problem Text: Patient requesting Mylanta Also give Zofran prn Increase bowel care (13) Oral thrush Status: Resolved Discussed With: Patient Problem Specific Plan: Monitor Clinically Problem Text: Mild oropharyngeal thrush was noted. I started her on nystatin swish and swallow. (14) Hypokalemia Status: Resolved Problem Text: Her potassium was down to 3.3 today. I suspect this hypokalemia is from her more aggressive diuresis with loop diuretic yesterday. She is now on a combination of the loop diuretic and a potassium sparing agent. I think this will help keep her potassium levels in better control. I added one additional dose of 40 mEq orally and we will monitor her electrolytes carefully. (15) Left upper arm pain Problem Text: given muscle relaxer and advised warm heat and kristopher wrap for compression. Plan/VTE VTE Prophylaxis Ordered?: Yes (Eliquis) Plan Therapy: PT VS, I&O, 24H, Fishbone Vital Signs/I&O Vital Signs Date Time Temp Pulse Resp B/P (MAP) Pulse Ox O2 Delivery O2 Flow Rate FiO2 08/01/19 08:45 99 141/74 08/01/19 05:46 98.6 18 95 Nasal Cannula 3.0 I&O- Last 24 Hours up to 6 AM 08/01/19 05:59 Intake Total 1740 ml Output Total 1300 ml Balance 440 ml Laboratory Data 24H LABS Laboratory Tests 2 07/31/19 11:44: Bedside Glucose (Misc Panel) 320H 07/31/19 17:15: Bedside Glucose (Misc Panel) 223H 07/31/19 17:47: Bedside Glucose (Misc Panel) 203H 07/31/19 21:13: Bedside Glucose (Misc Panel) 199H 08/01/19 06:11: Nucleated Red Blood Cells % (auto) 0.0, Anion Gap 7L, Glomerular Filtration Rate 51.4, Calcium Level 9.7 CBC/BMP Laboratory Tests 08/01/19 06:11 Microbiology Microbiology 07/26/19 Blood Culture - Final, Complete NO GROWTH AFTER 5 DAYS 07/26/19 Blood Culture - Final, Complete NO GROWTH AFTER 5 DAYS Elma Ramon [employer] Aug 01, 2019 11:39
[2019-08-01 14:22] VITALS: BP 139/74
[2019-08-01] MEDS: tiZANidine 4 MG TAB PO PRN ×2 (14:23→21:56)
[2019-08-01 20:40] VITALS: BP 135/64
[2019-08-01] MEDS: DOCUSATE SODIUM 100 MG CAP PO SCH (21:54)
[2019-08-01] MEDS: SPIRONOLACTONE 50 MG TAB PO SCH (21:54)
[2019-08-01] MEDS: LEVEMIR (INSULIN DETEMIR) 1 UNITS/0.01ML SC SCH (21:54)
[2019-08-02] MEDS: PIPERACILLIN/TAZOBACTAM SOD 3.375 GM in D5W MINI-BAG PLUS 50 ML IV SCH ×2 (00:14→05:37)
[2019-08-02] MEDS: ACETAMINOPHEN TAB 650MG DOSE (2X325MG) PO PRN ×3 (00:47→15:01)
[2019-08-02] MEDS: IPRATROPIUM 0.5MG/ALBUTEROL 2.5MG INH SOL UD 3ML (DUONEB)(J7620) NEB SCH ×3 (02:00→13:11)
[2019-08-02] MEDS: LEVOTHYROXINE 25MCG TABLET (0.025MG) PO SCH (05:37)
[2019-08-02] MEDS: LEVOTHYROXINE 150MCG TABLET (0.15MG) PO SCH (05:37)
[2019-08-02] MEDS: tiZANidine 4 MG TAB PO PRN (05:37)
[2019-08-02 05:38] VITALS: BP 136/65
[2019-08-02 06:44] LABS: HEMATOCRIT 39.2 % (36.0-47.0); HEMOGLOBIN 11.8 g/dl (12.0-15.5); MEAN CORPUSCULAR HGB CONC 30.1 g/dl (32.0-36.5); MEAN CORPUSCULAR VOLUME 93.1 fl (80.0-96.0); PLATELET COUNT, AUTOMATED 258 10^3/uL (150-450); RED BLOOD COUNT 4.21 10^6/uL (4.00-5.40); WHITE BLOOD COUNT 11.4 10^3/uL (4.0-10.0)
[2019-08-02 07:09] LABS: CALCIUM LEVEL 9.5 MG/DL (8.8-10.2); CREATININE FOR GFR 1.21 MG/DL (0.55-1.30); GLOMERULAR FILTRATION RATE 46.6 (>39); POTASSIUM SERUM 3.8 MEQ/L (3.5-5.1)
[2019-08-02] MEDS: SYMBICORT 80/4.5MCG INHALER 6GM INH SCH (07:46)
[2019-08-02] MEDS: HumaLOG INSULIN (NovoLOG) PER UNIT SC SCH ×2 (08:55→12:10)
[2019-08-02] MEDS: MIRALAX *UNIT DOSE* 17GM PACKET PO SCH (08:55)
[2019-08-02] MEDS: NYSTATIN 500,000 U/5 ML SUSP UDC SS SCH ×2 (08:55→12:09)
[2019-08-02] MEDS: FUROSEMIDE 40 MG TAB PO SCH (08:56)
[2019-08-02] MEDS: FERROUS SULFATE 325MG TAB PO SCH (08:56)
[2019-08-02] MEDS: LORATADINE 10 MG TAB PO SCH (08:56)
[2019-08-02] MEDS: ROSUVASTATIN 10 MG TAB (CRESTOR) PO SCH (08:56)
[2019-08-02] MEDS: PANTOPRAZOLE 40MG TAB (PROTONIX) PO SCH (08:56)
[2019-08-02] MEDS: NYSTATIN 100,000 UNITS/GM TOPICAL PWD 15 GM TOP SCH (08:57)
[2019-08-02] MEDS: ANALGESIC BALM CRM 120 GM TOP SCH (08:57)
[2019-08-02] MEDS: ASCORBIC ACID 500 MG TAB PO SCH (08:57)
[2019-08-02] MEDS: APIXABAN 5 MG TAB (ELIQUIS) PO SCH (08:57)
[2019-08-02] MEDS: HYDROCORTISONE 1% CREAM 30 GM TOP SCH (08:58)
[2019-08-02] MEDS ORDERED: TIZA4TAB4 PO (11:01)
[2019-08-02] MEDS ORDERED: MUSCCRE9 TOP (11:01)
[2019-08-02] MEDS ORDERED: FURO40TA2 PO (11:01)
[2019-08-02] MEDS ORDERED: DILT60TA PO (11:01)
[2019-08-02] MEDS ORDERED: CEFD300CAP PO (11:01)
[2019-08-02] MEDS ORDERED: ALDA50TA2 PO (11:01)
[2019-08-02 11:14] VITALS: BP 136/65
[2019-08-02] MEDS ORDERED: [UNRECOGNIZED DRUG - OTHER] XX (15:18)
== END 2019-08-02 15:30 | disposition home health service (06) | DRG 871 ==
LOC: M ED 19:07 → EDBD 19:07 → M ED INP 07-22 01:33 → M PCU 07-22 03:55 → M MS5PR 07-28 14:26
PROVIDERS: ADMIT Internal Medicine; ATTEND Family Medicine
PROC: B246ZZ4 Ultrasonography of Right and Left Heart, Transesophageal (ICD-10-PCS; principal; 2019-07-27 13:30)
DX: A40.9 Streptococcal sepsis, unspecified (principal); I50.33 Acute on chronic diastolic (congestive) heart failure; J18.9 Pneumonia, unspecified organism; L03.115 Cellulitis of right lower limb; B37.0 Candidal stomatitis; E87.2 Acidosis; R65.20 Severe sepsis without septic shock; E11.9 Type 2 diabetes mellitus without complications; J44.9 Chronic obstructive pulmonary disease, unspecified; Z86.73 Personal history of transient ischemic attack (TIA), and cerebral infarction without residual deficits; I25.10 Atherosclerotic heart disease of native coronary artery without angina pectoris; Z95.2 Presence of prosthetic heart valve; Z95.0 Presence of cardiac pacemaker; Z87.891 Personal history of nicotine dependence; K21.9 Gastro-esophageal reflux disease without esophagitis; Z79.899 Other long term (current) drug therapy; Z88.2 Allergy status to sulfonamides; Z88.6 Allergy status to analgesic agent; Z88.8 Allergy status to other drugs, medicaments and biological substances; Z88.0 Allergy status to penicillin; Z88.5 Allergy status to narcotic agent; I11.0 Hypertensive heart disease with heart failure; K74.60 Unspecified cirrhosis of liver; K57.30 Diverticulosis of large intestine without perforation or abscess without bleeding; R91.1 Solitary pulmonary nodule; I48.91 Unspecified atrial fibrillation; E87.6 Hypokalemia; Z66 Do not resuscitate